=== PATIENT | female | born 1975 | race Two or more races ===

== ENCOUNTER 2020-02-25 14:55 | Outpatient (REF) | payer OTHER, SELFPAY | END 2020-02-25 14:56 | disposition home or self-care (01) | LOC: HO.LAB 14:55 | PROVIDERS: PCP Internal Medicine; Referring Provider Internal Medicine; Visit Provider Obstetrics & Gynecology | DX: Z13.89 Encounter for screening for other disorder (principal) ==

== ENCOUNTER 2020-02-25 16:14 | Outpatient (REF) | payer OTHER, SELFPAY ==
[2020-02-25 18:07] LABS: Eosinophils Absolute Auto 0.1 X10*3/uL (0.0-0.4); Eosinophils Percent Auto 0.9 % (0-4); Hematocrit 28.4 % (37-47); Hemoglobin 8.7 g/dl (12.0-16.0); Mean Corpuscular HGB Conc 30.6 g/dl (31.0-35.0); Red Cell Distribution Width 13.8 % (11.0-16.0); SCAN SMEAR FLAG 1
[2020-02-25 18:09] LABS: Basophils Percent Auto 0.5 % (0-2); Imm Gran Abs Auto 0.01 X10*3/uL (0.00-0.03); Imm Gran Pct Auto 0.2 % (0.0-0.4); Lymphocytes Absolute Auto 1.4 X10*3/uL (1.2-4.9); Lymphocytes Percent Auto 23.9 % (20-40); Monocytes Absolute Auto 0.3 X10*3/uL (0.1-1.2); Monocytes Percent Auto 5.8 % (2-11); Neutrophils Absolute Auto 3.9 X10*3/uL (2.0-8.3); Neutrophils Percent Auto 68.7 % (45-73); Platelet Count 187 X10*3/uL (160-400); Red Blood Count 3.34 X10*6/uL (4.20-5.50); White Blood Count 5.7 X10*3/uL (4.8-10.8)
[2020-02-25 18:16] LABS: MANUAL DIFF FLAG NO; PLT ABN DIST 1
[2020-02-25 18:53] LABS: HCG Quantitative < 2 mIU/mL; Thyroid Stimulating Hormone 0.79 uIU/mL (0.32-4.0)
[2020-02-26 11:01] LABS: BV Int Neg Control Negative (Negative); BV Int Pos Control Positive (Positive)
[2020-02-26 11:02] LABS: CT PCR NOT DETECTED (Not Detect.); NG PCR NOT DETECTED (Not Detect.)
[2020-03-01 17:27] LABS: HPV mRNA E6/E7 rflx Not Detected (Not Detected)
== END 2020-02-25 16:15 | disposition home or self-care (01) ==
LOC: HO.LAB 16:14
PROVIDERS: Visit Provider Obstetrics & Gynecology
DX: Z01.419 Encounter for gynecological examination (general) (routine) without abnormal findings (principal); N92.0 Excessive and frequent menstruation with regular cycle
CPT/HCPCS: 36415; 84443; 84702; 85025; 87480; 87491; 87510; 87591; 87624; 87625; 87660; 88142

== ENCOUNTER → 2020-03-09 11:10 | Outpatient (BNVA) | payer OTHER, SELFPAY | PROVIDERS: PCP Internal Medicine; Visit Provider Obstetrics & Gynecology | DX: N92.0 Excessive and frequent menstruation with regular cycle (principal); N76.0 Acute vaginitis; B96.89 Other specified bacterial agents as the cause of diseases classified elsewhere | CPT/HCPCS: 99212 ==

== ENCOUNTER 2020-03-12 12:25 | Outpatient (REF) | payer OTHER, SELFPAY | END 2020-03-12 12:26 | disposition home or self-care (01) | LOC: HO.LAB 12:25 | PROVIDERS: Visit Provider Internal Medicine | DX: Z20.828 Contact with and (suspected) exposure to other viral communicable diseases (principal) | CPT/HCPCS: C9803; U0003 ==

== ENCOUNTER 2020-03-30 15:24 | Outpatient (REF) | payer OTHER, SELFPAY ==
--- NOTE | 2020-03-30 15:29 | US_ITS ---
EXAMINATION: US PELVIS COMPLETE US TRANSVAGINAL CLINICAL INFORMATION: Excessive and frequent menstruation with irregular cycle. LMP 03/17/2020. COMPARISON: Pelvic ultrasound 06/06/2019 TECHNIQUE: Transabdominal and transvaginal ultrasound of the pelvis was performed. FINDINGS: The uterus is anteverted and anteflexed measuring 10.8 cm in length, 6.5 cm AP, and 8.2 cm in transverse dimension. There are multiple hypoechoic fibroids seen. 1. A 2.7 x 2.7 x 2.4 cm lesion in the submucosal lower uterine segment. Previously, it measured 3.4 x 3.1 x 2.8 cm. 2. Medium-sized lesion in the mid body of the uterus measuring 4.0 x 4.1 x 4.1 cm. Previously, it measured 4.2 x 3.7 x 4.8 cm. 3. Posterior fundal small lesion measuring 3.0 x 2.3 x 2.1 cm. Previously, it measured 1.7 x 1.1 x 2.1 cm. 4. Lesion in the anterior fundus measuring 1.8 x 1.6 x 1.6 cm. Previously, it measured 1.6 x 1.3 x 2.2 cm. 5. New lesion in the posterior body of the uterus measuring 1.3 x 1.2 x 1.4 cm. 6. Lesion in the anterior upper body of the uterus measuring 0.9 x 1.0 x 1.1 cm. There are small nabothian cysts seen in the cervix. The right ovary measures 2.7 x 1.5 x 2.1 cm and volume 4.4 mL. Previously, it measured 2.8 x 2.1 x 2.9 cm. It appears unremarkable. The left ovary measures 2.5 x 1.7 x 2.4 cm and volume 5.4 mL. Previously, it measured 3.0 x 1.5 x 2.8 cm. There is no free fluid in the cul-de-sac. US/US pelvic complete IMPRESSION: Multiple uterine fibroids. There are 2 fibroids new since the previous study. Previously seen right posterior body of uterus fibroid is not seen at this time. Some of the fibroids in the lower body of uterus #1 and #2 lesions on previous exam correspond to #6 and #5 lesions on the present exam.
== END 2020-03-30 15:25 | disposition home or self-care (01) ==
LOC: HO.US 15:24
PROVIDERS: PCP Internal Medicine; Visit Provider Obstetrics & Gynecology
DX: D21.9 Benign neoplasm of connective and other soft tissue, unspecified (principal); N92.0 Excessive and frequent menstruation with regular cycle
CPT/HCPCS: 76830; 76856

== ENCOUNTER → 2020-04-12 14:30 | Outpatient (BNVA) | payer OTHER, SELFPAY | PROVIDERS: PCP Internal Medicine; Visit Provider Obstetrics & Gynecology | DX: Z76.89 Persons encountering health services in other specified circumstances (principal) ==

== ENCOUNTER 2020-04-22 10:11 | Outpatient (REF) | payer OTHER, SELFPAY | END 2020-04-22 10:12 | disposition home or self-care (01) | LOC: HO.LAB 10:11 | PROVIDERS: PCP Internal Medicine; Visit Provider Obstetrics & Gynecology | DX: N92.0 Excessive and frequent menstruation with regular cycle (principal) | CPT/HCPCS: 58100; 88305 ==

== ENCOUNTER → 2020-04-29 16:21 | Outpatient (BNVA) | payer OTHER, SELFPAY | PROVIDERS: PCP Internal Medicine; Visit Provider Obstetrics & Gynecology ==

== ENCOUNTER 2020-06-06 23:13 | Emergency (ER) | payer OTHER, SELFPAY ==
[2020-06-06 23:21] VITALS: BP 154/64; PULSE 79; RESP 16; TEMP 36.1; O2SAT 98; BMI 28.3
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
[2020-06-07] MEDS: Lidocaine 4 % Patch ADH..PATCH 1 PATCH TRANSDERMA (00:14)
[2020-06-07] MEDS: Ibuprofen 800 MG TABLET PO (00:14)
[2020-06-07] MEDS: Acetaminophen 325 MG TABLET 975 MG PO (00:14)
== END 2020-06-07 00:56 | disposition home or self-care (01) ==
PROVIDERS: Emergency Provider Student in an Organized Health Care Education/Training Program; PCP Internal Medicine
DX: S16.1XXA Strain of muscle, fascia and tendon at neck level, initial encounter (principal); S39.012A Strain of muscle, fascia and tendon of lower back, initial encounter; M54.2 Cervicalgia; M62.838 Other muscle spasm; V43.62XA Car passenger injured in collision with other type car in traffic accident, initial encounter; Y93.9 Activity, unspecified; Y92.410 Unspecified street and highway as the place of occurrence of the external cause; Y99.9 Unspecified external cause status; Z79.899 Other long term (current) drug therapy
CPT/HCPCS: 96372; 99284

== ENCOUNTER 2020-06-17 14:06 | Outpatient (REF) | payer OTHER, SELFPAY ==
--- NOTE | ~2020-06-17 | MM_ITS ---
EXAMINATION: MM SCREENING DIGITAL BREAST TOMOSYNTHESIS, BILATERAL CLINICAL INFORMATION: Screening. Asymptomatic. The lifetime risk of breast cancer based on the Tyrer-Cuzick Model is 11.5%. COMPARISON: Mammography: January 03, 2019 and July 06, 2017 TECHNIQUE: Digital breast tomosynthesis is performed in both the craniocaudal and mediolateral oblique views along with computer-aided detection (CAD). Synthesized 2D images are generated from the tomosynthesis. FINDINGS: The breasts are extremely dense, which lowers the sensitivity of mammography (ACR BI-RADS breast composition Category d). There are no significant masses, abnormal calcifications, or other abnormalities. MM/MM tomosynthesis screening BI IMPRESSION: There are no significant changes from prior study. ASSESSMENT: BI-RADS 1: Negative RECOMMENDATION: Routine annual mammography screening. This patient's information was entered into a reminder system with a target due date for their next mammogram.
== END 2020-06-17 14:07 | disposition home or self-care (01) ==
LOC: HO.MAMMO 14:06
PROVIDERS: PCP Internal Medicine; Visit Provider Obstetrics & Gynecology
DX: Z12.31 Encounter for screening mammogram for malignant neoplasm of breast (principal)
CPT/HCPCS: 77063; 77067

== ENCOUNTER 2020-07-04 12:04 | Emergency (ER) | payer OTHER, SELFPAY ==
--- NOTE | ~2020-07-04 | XR_ITS ---
EXAMINATION: XR HAND, RIGHT CLINICAL INFORMATION: Rule out foreign body. COMPARISON: None TECHNIQUE: PA, lateral, and oblique views of the right hand. FINDINGS: The bones and soft tissues are normal. No fracture. Alignment is anatomic. Joint spaces are maintained. No erosions or soft tissue calcifications. XR/XR hand RT 2V IMPRESSION: Normal right hand.
[2020-07-04 12:13] VITALS: BP 153/86; PULSE 84; RESP 20; TEMP 37.2; O2SAT 100; BMI 29.2
[2020-07-04] MEDS: Amoxicillin/Potassium Clav 875 MG TABLET PO (13:21)
[2020-07-04] MEDS: Ibuprofen 600 MG TABLET PO (13:21)
[2020-07-04] MEDS: Diphth,Pertus(ACell),Tet Adult 0.5 ML SYRINGE IM (13:21)
--- NOTE | 2020-07-04 13:50 | PC.NURSE ---
WOUNDS CLEANSED WITH SOAP/WATER AND NS, BLEEDING CONTROLLED
--- NOTE | 2020-07-04 13:58 | PC.NURSE ---
MULTIPLE DOG BITE AREAS CLEANSED WITH SOAP/WATER/NS, AWAITING XRAY RESULTS
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
== END 2020-07-04 15:01 | disposition home or self-care (01) ==
PROVIDERS: Emergency Provider Emergency Medicine; PCP Internal Medicine
DX: S50.872A Other superficial bite of left forearm, initial encounter (principal); S50.871A Other superficial bite of right forearm, initial encounter; M79.632 Pain in left forearm; M79.631 Pain in right forearm; W54.0XXA Bitten by dog, initial encounter; Y93.9 Activity, unspecified; Y92.9 Unspecified place or not applicable; Y99.9 Unspecified external cause status; Z79.899 Other long term (current) drug therapy
CPT/HCPCS: 73120; 90471; 90715; 99283; 99284

== ENCOUNTER 2020-08-05 15:16 | Emergency (ER) | payer OTHER, SELFPAY ==
[2020-08-05 15:58] VITALS: BP 165/81; PULSE 68; RESP 18; TEMP 37.1; O2SAT 100; BMI 29.2
[2020-08-05] MEDS: Ibuprofen 600 MG TABLET PO (18:28)
[2020-08-05] MEDS: Lidocaine HCl 2 % MPF 5 ML VIAL INFILTRATI (18:28)
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
--- NOTE | 2020-08-05 19:15 | PC.NURSE ---
PT BITE 1 SUTURE APPLIED BY EDWIN FELTON ALL BITES FLUSHED WITH NS 0.9% ANTIBACTERIAL APPLIED WITH DSD,
== END 2020-08-05 19:16 | disposition home or self-care (01) ==
PROVIDERS: Emergency Provider Internal Medicine
DX: S51.811A Laceration without foreign body of right forearm, initial encounter (principal); S50.871A Other superficial bite of right forearm, initial encounter; M79.631 Pain in right forearm; W54.0XXA Bitten by dog, initial encounter; Y93.9 Activity, unspecified; Y92.9 Unspecified place or not applicable; Y99.9 Unspecified external cause status; Z79.899 Other long term (current) drug therapy
CPT/HCPCS: 12001; 99284

== ENCOUNTER 2020-08-16 09:37 | Emergency (ER) | payer OTHER, SELFPAY ==
[2020-08-16 09:45] VITALS: BP 141/70; PULSE 76; RESP 18; TEMP 36.4; O2SAT 100; BMI 29.2
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
== END 2020-08-16 10:10 | disposition home or self-care (01) ==
PROVIDERS: Emergency Provider Emergency Medicine
DX: Z48.02 Encounter for removal of sutures (principal); S51.811D Laceration without foreign body of right forearm, subsequent encounter; W54.0XXD Bitten by dog, subsequent encounter
CPT/HCPCS: 99283

== ENCOUNTER 2020-08-20 23:53 | Emergency (ER) | payer OTHER, SELFPAY ==
--- NOTE | ~2020-08-20 | US_ITS ---
EXAMINATION: ULTRASOUND PELVIS AND TRANSVAGINAL CLINICAL INFORMATION: Heavy vaginal bleeding COMPARISON: 03/30/2020 TECHNIQUE: Sonographic evaluation of the pelvis was performed transabdominally and transvaginally. FINDINGS: The uterus measures 15.6 cm in length and 9.3 x 8.6 cm in AP and transverse dimensions. Endometrial stripe measures approximately 0.9 cm in thickness, though this is difficult to clearly visualize due to multiple fibroids. Nabothian cysts are noted in the cervix. Multiple fibroids are identified and attempted to be compared with 03/30/2020. Largest fibroid in the lower uterus measures 5.9 x 3.2 x 3.6 cm, previously 2.7 x 2.7 x 2.4 cm. A fibroid in the mid to distal uterus measures 5.2 x 4.2 x 4.4 cm, previously 4.0 x 4.1 x 4.1 cm. A fibroid at the uterine fundus measures 4.1 x 2.7 x 4.0 cm, previously 1.8 x 1.6 x 1.6 cm. A few additional fibroids are noted measuring up to 2.2 cm (previously up to 1.4 cm) and up to 2.0 cm (previously up to 3.0 cm). There is also a 1.5 x 0.7 x 1.3 cm fibroid in the mid uterus which was not identified previously. The ovaries are only visible on transabdominal imaging. The right ovary measures 5.8 x 3.6 x 4.7 cm and contains a 4.3 x 3.0 x 3.9 cm simple cyst. The left ovary measures 3.6 x 1.9 x 2.1 cm and appears unremarkable. Small amount of pelvic free fluid is noted. US/US pelvic and transvaginal IMPRESSION: 1. Redemonstration of multiple fibroids as listed above. 2. Simple right ovarian cyst measuring up to 4.3 cm. Sonographic follow-up may be performed to assess for resolution. 3. Small amount of nonspecific pelvic free fluid.
[2020-08-21] VITALS (14 sets, daily range): BP systolic 72–139; BP diastolic 30–73; PULSE 61–85; RESP 16–20; TEMP 35.9–36.3; O2SAT 97–100; BMI 24.3
[2020-08-21 00:25] LABS: MANUAL DIFF FLAG NO
[2020-08-21 00:26] LABS: Basophils Absolute Auto 0.1 X10*3/uL (0.0-0.2); Basophils Percent Auto 0.6 % (0-2); Eosinophils Absolute Auto 0.2 X10*3/uL (0.0-0.4); Eosinophils Percent Auto 2.6 % (0-4); Hematocrit 30.7 % (37-47); Hemoglobin 9.7 g/dl (12.0-16.0); Imm Gran Abs Auto 0.03 X10*3/uL (0.00-0.03); Imm Gran Pct Auto 0.4 % (0.0-0.4); Lymphocytes Percent Auto 34.9 % (20-40); Mean Corpuscular HGB Conc 31.6 g/dl (31.0-35.0); Mean Corpuscular Hemoglobin 27.1 pg (27.0-33.0); Mean Corpuscular Volume 85.8 fL (80-98); Monocytes Absolute Auto 0.5 X10*3/uL (0.1-1.2); Monocytes Percent Auto 5.9 % (2-11); Neutrophils Absolute Auto 4.7 X10*3/uL (2.0-8.3); Neutrophils Percent Auto 55.6 % (45-73); Platelet Count 194 X10*3/uL (160-400); Red Blood Count 3.58 X10*6/uL (4.20-5.50); Red Cell Distribution Width 13.5 % (11.0-16.0); White Blood Count 8.5 X10*3/uL (4.8-10.8)
[2020-08-21] MEDS: 0.9 % Sodium Chloride 1,000 ML 999 ML IVCONT ×2 (00:30)
[2020-08-21 00:53] LABS: Alanine Aminotransferase 16 U/L (0-31); Albumin Level 3.7 g/dL (3.5-5.0); Alkaline Phosphatase 62 U/L (39-117); Anion Gap 12 (12-20); Aspartate Amino Transferase 16 U/L (5-31); Bilirubin Total 0.4 mg/dL (0.0-1.0); Blood Urea Nitrogen 16 mg/dL (9-16); Calcium 8.4 mg/dL (8.4-10.2); Carbon Dioxide 23 mmol/L (22-29); Chloride 107 mmol/L (96-108); Creatinine Clr Calc Pharmacy 72.4; Estimated Glomerular Filt Rate 56; Glucose Random 114 mg/dL (60-115); Potassium 3.6 mmol/L (3.3-5.1); Sodium 138 mmol/L (135-145); Total Protein 6.2 g/dL (6.5-8.0)
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
[2020-08-21 01:01] LABS: HCG Quantitative < 2 mIU/mL
--- NOTE | 2020-08-21 01:03 | PC.NURSE ---
Upon arrival to ED, while patient was being triaged, (per Marina Licea,RN), patient began to feel like I was gonna pass out . This RN and applications support specialist to triage with stretcher for assistance to transfer into stretcher. Pt diaphoretic, hypotensive 62/39, alert/oriented/answering questions appropriately, but tired. Pt reports hx of uterine fibroids and takes TXA with each menstrual period. Pt self reports I've bled through 10 maxi pads in the last 2 or 3 hours . Pelvic exam performed by at bedside, this RN assisting, moderate clots removed, with no additional signs of active bleeding noted. Lower abdominal/pelvic pain noted with palpation. 20g IV access in right AC, 18g IV access in left AC with 2L Normal saline infusing as ordered. Labs drawn and sent for analysis, including Type & Screen. Pt's vital signs have improved, pt reports feeling better since I got here . Pt no longer diaphoretic or hypotensive. Will continue to monitor.
[2020-08-21 01:48] LABS: Glucose Urine UA NEG (NEG); Leukocyte Esterase Urine NEG (NEG); Nitrite Urine NEG (NEG); Specific Gravity - Urine 1.025 (1.005-1.025); Urine Blood 3+ (NEG); Urine Ketones NEG (NEG); Urine Protein NEG (NEG-TRACE)
[2020-08-21 01:50] LABS: Appearance Urine CLOUDY; Color Urine PINK
[2020-08-21 01:55] LABS: Bacteria Urine TRACE /LPF; Mucus Urine TRACE /LPF; Squamous Epithelial Cell Urine 1+ /LPF; WBC Urine 0-2 /HPF (0-4)
== END 2020-08-21 05:23 | disposition home or self-care (01) ==
PROVIDERS: Emergency Provider Emergency Medicine; PCP Hospitalist
DX: N92.0 Excessive and frequent menstruation with regular cycle (principal); N83.291 Other ovarian cyst, right side; D25.9 Leiomyoma of uterus, unspecified; N88.8 Other specified noninflammatory disorders of cervix uteri
CPT/HCPCS: 36415; 76830; 76856; 80053; 80076; 81001; 84702; 85025; 86850; 86900; 86901; 96360; 99284

== ENCOUNTER 2020-09-15 10:23 | Outpatient (REF) | payer OTHER, SELFPAY ==
[2020-09-15 13:45] LABS: Basophils Percent Auto 0.4 % (0-2); Eosinophils Percent Auto 0.6 % (0-4); Imm Gran Abs Auto 0.01 X10*3/uL (0.00-0.03); Imm Gran Pct Auto 0.2 % (0.0-0.4); MANUAL DIFF FLAG SCAN; Red Cell Distribution Width 14.6 % (11.0-16.0)
[2020-09-15 13:46] LABS: Hematocrit 36.6 % (37-47); Hemoglobin 11.6 g/dl (12.0-16.0); Lymphocytes Absolute Auto 1.1 X10*3/uL (1.2-4.9); Lymphocytes Percent Auto 21.8 % (20-40); Mean Corpuscular HGB Conc 31.7 g/dl (31.0-35.0); Mean Corpuscular Hemoglobin 28.2 pg (27.0-33.0); Mean Corpuscular Volume 89.1 fL (80-98); Monocytes Absolute Auto 0.3 X10*3/uL (0.1-1.2); Monocytes Percent Auto 6.7 % (2-11); Neutrophils Absolute Auto 3.5 X10*3/uL (2.0-8.3); Neutrophils Percent Auto 70.3 % (45-73); Platelet Count 135 X10*3/uL (160-400); Red Blood Count 4.11 X10*6/uL (4.20-5.50)
[2020-09-15 13:48] LABS: PLT ABN DIST 1
[2020-09-15 14:05] LABS: Appearance Urine TURBID; Color Urine YELLOW; Glucose Urine UA NEG (NEG); Leukocyte Esterase Urine NEG (NEG); Nitrite Urine NEG (NEG); Specific Gravity - Urine >= 1.030 (1.005-1.025); Urine Blood TRACE (NEG); Urine Ketones NEG (NEG); Urine Protein NEG (NEG-TRACE)
[2020-09-15 14:14] LABS: RBC Urine 0-2 /HPF (0); WBC Urine 0-2 /HPF (0-4)
[2020-09-15 14:15] LABS: Amorphous Sediment Urine 4+ /LPF; Bacteria Urine TRACE /LPF; Squamous Epithelial Cell Urine TRACE /LPF
[2020-09-15 16:34] LABS: TSH reflex Free T4 0.85 uIU/mL (0.32-4.0)
[2020-09-15 16:41] LABS: Alanine Aminotransferase 20 U/L (0-31); Albumin Level 4.1 g/dL (3.5-5.0); Alkaline Phosphatase 59 U/L (39-117); Anion Gap 12 (12-20); Aspartate Amino Transferase 19 U/L (5-31); Bilirubin Total 0.7 mg/dL (0.0-1.0); Blood Urea Nitrogen 14 mg/dL (9-16); Calcium 9.4 mg/dL (8.4-10.2); Carbon Dioxide 24 mmol/L (22-29); Chloride 108 mmol/L (96-108); Cholesterol 163 mg/dL; Estimated Glomerular Filt Rate 53; Glucose Fasting 74 mg/dL (60-99); HDL Cholesterol 61 mg/dL; LDL Cholesterol Calculated 88 mg/dl; Potassium 4.3 mmol/L (3.3-5.1); Sodium 140 mmol/L (135-145); Total Protein 7.1 g/dL (6.5-8.0); Triglycerides 70 mg/dL
== END 2020-09-15 10:24 | disposition home or self-care (01) ==
LOC: HO.WFDLDS 10:23
PROVIDERS: Visit Provider Family Medicine
DX: Z00.00 Encounter for general adult medical examination without abnormal findings (principal)
CPT/HCPCS: 36415; 80053; 80061; 81001; 81003; 84443; 85025

== ENCOUNTER 2020-12-10 21:21 | Emergency (ER) | payer OTHER, SELFPAY ==
[2020-12-10 22:08] VITALS: BP 153/101; PULSE 84; RESP 16; TEMP 36.9; O2SAT 99; BMI 24.5
[2020-12-10 22:13] LABS: Red Cell Distribution Width 13.2 % (11.0-16.0)
[2020-12-10 22:15] LABS: Glucose Urine UA 100 MG/DL (NEG); Leukocyte Esterase Urine 2+ (NEG); Nitrite Urine POS (NEG); UACC Culture Trigger YES; Urine Blood 3+ (NEG); Urine Ketones 15 MG/DL (NEG); Urine Protein 3+ MG/DL (NEG-TRACE)
[2020-12-10 22:15] LABS: Hematocrit 33.1 % (37-47); Hemoglobin 10.9 g/dl (12.0-16.0); Mean Corpuscular HGB Conc 32.9 g/dl (31.0-35.0); Mean Corpuscular Hemoglobin 27.2 pg (27.0-33.0); Mean Corpuscular Volume 82.5 fL (80-98); Mean Platelet Volume 12.5 fL (9.4-12.3); Red Blood Count 4.01 X10*6/uL (4.20-5.50)
[2020-12-10 22:16] LABS: PLT ABN DIST 1; WBC ABN SCTR FOR CBC 1
[2020-12-10 22:19] LABS: Appearance Urine CLOUDY; Color Urine RED
[2020-12-10 22:25] LABS: UPreg QC Valid YES; Urine Pregnancy NEGATIVE (NEGATIVE)
[2020-12-10 22:29] LABS: Alanine Aminotransferase 15 U/L (0-31); Albumin Level 3.7 g/dL (3.5-5.0); Alkaline Phosphatase 68 U/L (39-117); Anion Gap 11 (12-20); Aspartate Amino Transferase 14 U/L (5-31); Bilirubin Total 0.4 mg/dL (0.0-1.0); Blood Urea Nitrogen 9 mg/dL (9-16); Calcium 9.3 mg/dL (8.4-10.2); Carbon Dioxide 23 mmol/L (22-29); Chloride 107 mmol/L (96-108); Creatinine Clr Calc Pharmacy 79.1; Estimated Glomerular Filt Rate > 60; Glucose Random 138 mg/dL (60-115); Potassium 3.4 mmol/L (3.3-5.1); Sodium 138 mmol/L (135-145); Total Protein 6.8 g/dL (6.5-8.0)
[2020-12-10 22:30] LABS: RBC Urine TNTC /HPF (0); WBC Urine 0 /HPF (0-4)
[2020-12-10 22:31] LABS: Bacteria Urine TRACE /LPF; Squamous Epithelial Cell Urine TRACE /LPF
[2020-12-10 22:43] LABS: Platelet Count 142 X10*3/uL (160-400); White Blood Count 5.5 X10*3/uL (4.8-10.8)
[2020-12-10 22:44] LABS: Eosinophils Absolute Manual 0.2 X10*3/UL (0.0-0.8); Eosinophils Percent Manual 3 % (0-4); Large Platelet PRESENT; Lymphocytes Absolute Manual 1.1 X10*3/uL (0.6-4.8); Lymphocytes Percent Manual 20 % (20-40); Monocytes Absolute Manual 0.1 X10*3/uL (0.0-1.2); Monocytes Percent Manual 1 % (2-11); Neutrophils Percent Manual 76 % (45-73); Platelet Estimate DECREASED (NORMAL); Platelet Morphology Comment NOTED; RBC Morphology NORMAL
[2020-12-10 22:45] LABS: Neutrophils Absolute Manual 4.2 X10*3/uL (2.2-7.9)
[2020-12-11 01:55] VITALS: BP 168/92; PULSE 69; RESP 16; TEMP 36.8; O2SAT 100
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
[2020-12-11 02:19] VITALS: BP 164/86; PULSE 62
[2020-12-11 02:20] VITALS: BP 155/80; PULSE 72
[2020-12-11 02:21] VITALS: BP 145/103; PULSE 78
== END 2020-12-11 02:37 | disposition home or self-care (01) ==
PROVIDERS: Emergency Provider Emergency Medicine; PCP Family Medicine
DX: N92.0 Excessive and frequent menstruation with regular cycle (principal); R42 Dizziness and giddiness; D64.9 Anemia, unspecified; D21.9 Benign neoplasm of connective and other soft tissue, unspecified
CPT/HCPCS: 36415; 80053; 81001; 81025; 85007; 85027; 87086; 99284

== ENCOUNTER 2020-12-13 12:05 | Emergency (ER) | payer OTHER, SELFPAY ==
[2020-12-13 12:45] VITALS: BP 139/70; PULSE 95; RESP 16; TEMP 36.3; O2SAT 100; BMI 28.3
== END 2020-12-13 15:00 | disposition left against medical advice (07) ==
PROVIDERS: Emergency Provider Emergency Medicine; PCP Family Medicine
DX: R42 Dizziness and giddiness (principal); R53.1 Weakness
CPT/HCPCS: 99281; 99282

== ENCOUNTER 2021-02-22 16:09 | Outpatient (REF) | payer OTHER, SELFPAY ==
[2021-02-22 16:33] LABS: MANUAL DIFF FLAG NO
[2021-02-22 16:48] LABS: Basophils Percent Auto 0.7 % (0-2); Eosinophils Absolute Auto 0.1 X10*3/uL (0.0-0.4); Eosinophils Percent Auto 0.9 % (0-4); Hematocrit 43.2 % (37.0-47.0); Imm Gran Abs Auto 0.01 X10*3/uL (0.00-0.03); Imm Gran Pct Auto 0.2 % (0.0-0.4); Lymphocytes Absolute Auto 1.5 X10*3/uL (1.2-4.9); Lymphocytes Percent Auto 27.5 % (20-40); Mean Corpuscular HGB Conc 32.4 g/dl (31.0-35.0); Mean Corpuscular Hemoglobin 27.2 pg (27.0-33.0); Monocytes Absolute Auto 0.4 X10*3/uL (0.1-1.2); Monocytes Percent Auto 7.1 % (2-11); Neutrophils Absolute Auto 3.4 x10*3/uL (2.0-8.3); Neutrophils Percent Auto 63.6 % (45-73); Platelet Count 202 X10*3/uL (160-400); Red Blood Count 5.14 X10*6/uL (4.20-5.50); Red Cell Distribution Width 12.3 % (11.0-16.0); White Blood Count 5.4 X10*3/uL (4.8-10.8)
[2021-02-22 19:01] LABS: Appearance Urine CLEAR; Color Urine YELLOW; Glucose Urine UA NEG (NEG); Leukocyte Esterase Urine NEG (NEG); Nitrite Urine NEG (NEG); Specific Gravity - Urine 1.015 (1.005-1.025); Urine Blood 3+ (NEG); Urine Ketones NEG (NEG); Urine Protein NEG (NEG-TRACE)
[2021-02-22 19:15] LABS: Squamous Epithelial Cell Urine TRACE /LPF; WBC Urine 0-2 /HPF (0-4)
== END 2021-02-22 16:10 | disposition home or self-care (01) ==
LOC: HO.LAB 16:09
PROVIDERS: PCP Family Medicine; Visit Provider Family Medicine
DX: Z00.00 Encounter for general adult medical examination without abnormal findings (principal); D64.9 Anemia, unspecified
CPT/HCPCS: 36415; 81001; 81003; 85025

== ENCOUNTER 2021-02-25 14:52 | Outpatient (REF) | payer OTHER, SELFPAY ==
--- NOTE | ~2021-02-25 | XR_ITS ---
EXAMINATION: XR HIP, LEFT CLINICAL INFORMATION: Left hip pain. COMPARISON: None TECHNIQUE: Two views of the left hip. FINDINGS: Bones and soft tissues are normal. No fracture. Alignment is anatomic. Hip joint space is maintained. XR/XR hip LT min 2V IMPRESSION: Normal left hip.
== END 2021-02-25 14:53 | disposition home or self-care (01) ==
LOC: HO.HMGCX 14:52
PROVIDERS: Visit Provider Family Medicine
DX: M25.552 Pain in left hip (principal)
CPT/HCPCS: 73502

== ENCOUNTER 2021-04-22 08:52 | Outpatient (REF) | payer OTHER, SELFPAY ==
[2021-04-22 11:36] LABS: MANUAL DIFF FLAG NO
[2021-04-22 11:37] LABS: Appearance Urine CLEAR; Color Urine YELLOW; Glucose Urine UA NEG (NEG); Leukocyte Esterase Urine NEG (NEG); Nitrite Urine NEG (NEG); PH 5.5 (5.0-8.0); Specific Gravity - Urine >= 1.030 (1.005-1.025); Urine Blood 1+ (NEG); Urine Ketones NEG (NEG); Urine Protein TRACE MG/DL (NEG-TRACE)
[2021-04-22 11:55] LABS: Basophils Percent Auto 0.4 % (0-2); Eosinophils Percent Auto 0.8 % (0-4); Hemoglobin 14.1 g/dl (12.0-16.0); Imm Gran Abs Auto 0.01 X10*3/uL (0.00-0.03); Imm Gran Pct Auto 0.2 % (0.0-0.4); Lymphocytes Absolute Auto 1.5 X10*3/uL (1.2-4.9); Mean Corpuscular HGB Conc 32.8 g/dl (31.0-35.0); Mean Corpuscular Hemoglobin 27.2 pg (27.0-33.0); Mean Corpuscular Volume 82.9 fL (80.0-98.0); Mean Platelet Volume 13.1 fL (9.4-12.3); Monocytes Absolute Auto 0.3 X10*3/uL (0.1-1.2); Monocytes Percent Auto 6.4 % (2-11); Neutrophils Absolute Auto 3.4 x10*3/uL (2.0-8.3); Neutrophils Percent Auto 64.2 % (45-73); Platelet Count 165 X10*3/uL (160-400); Red Blood Count 5.19 X10*6/uL (4.20-5.50); Red Cell Distribution Width 14.3 % (11.0-16.0); White Blood Count 5.3 X10*3/uL (4.8-10.8)
[2021-04-22 11:59] LABS: Mucus Urine 2+ /LPF; WBC Urine 0-2 /HPF (0-4)
[2021-04-22 12:00] LABS: Squamous Epithelial Cell Urine 2+ /LPF
[2021-04-22 12:11] LABS: Troponin-I High Sensitivity 4.1 ng/L (<3.5-17.0)
[2021-04-22 12:12] LABS: Alanine Aminotransferase 24 U/L (0-31); Albumin Level 4.1 g/dL (3.5-5.0); Alkaline Phosphatase 82 U/L (39-117); Anion Gap 13 (12-20); Aspartate Amino Transferase 19 U/L (5-31); Bilirubin Total 0.8 mg/dL (0.0-1.0); Blood Urea Nitrogen 10 mg/dL (9-16); Calcium 9.4 mg/dL (8.4-10.2); Carbon Dioxide 22 mmol/L (22-29); Chloride 107 mmol/L (96-108); Estimated Glomerular Filt Rate 51; Glucose Fasting 76 mg/dL (60-99); Potassium 4.4 mmol/L (3.3-5.1); Sodium 138 mmol/L (135-145); Total Protein 7.5 g/dL (6.5-8.0)
[2021-04-22 12:21] LABS: Creatinine Urine 368.06 mg/dL; Microalbum/Creatinine Ratio Ur 28.2 ug/mg cr
[2021-04-22 12:35] LABS: TSH reflex Free T4 1.64 uIU/mL (0.32-4.0)
== END 2021-04-22 08:53 | disposition home or self-care (01) ==
LOC: HO.HMGCLDS 08:52
PROVIDERS: PCP Family Medicine; Visit Provider Family Medicine
DX: Z00.00 Encounter for general adult medical examination without abnormal findings (principal); I10 Essential (primary) hypertension; D64.9 Anemia, unspecified
CPT/HCPCS: 36415; 80053; 81001; 82043; 84443; 84484; 85025

== ENCOUNTER 2021-07-28 12:02 | Outpatient (REF) | payer OTHER, SELFPAY ==
[2021-07-28 13:52] LABS: Basophils Percent Auto 0.6 % (0-2); Red Cell Distribution Width 13.4 % (11.0-16.0); SCAN SMEAR FLAG 1
[2021-07-28 13:54] LABS: Eosinophils Absolute Auto 0.1 X10*3/uL (0.0-0.4); Eosinophils Percent Auto 1.5 % (0-4); Hemoglobin 12.6 g/dl (12.0-16.0); Imm Gran Abs Auto 0.02 X10*3/uL (0.00-0.03); Imm Gran Pct Auto 0.4 % (0.0-0.4); Lymphocytes Absolute Auto 1.1 X10*3/uL (1.2-4.9); Lymphocytes Percent Auto 20.9 % (20-40); Mean Corpuscular HGB Conc 32.3 g/dl (31.0-35.0); Mean Corpuscular Hemoglobin 26.6 pg (27.0-33.0); Mean Corpuscular Volume 82.5 fL (80.0-98.0); Monocytes Absolute Auto 0.3 X10*3/uL (0.1-1.2); Monocytes Percent Auto 5.4 % (2-11); Neutrophils Absolute Auto 3.8 x10*3/uL (2.0-8.3); Neutrophils Percent Auto 71.2 % (45-73); Platelet Count 181 X10*3/uL (160-400); Red Blood Count 4.73 X10*6/uL (4.20-5.50); White Blood Count 5.4 X10*3/uL (4.8-10.8)
[2021-07-28 14:21] LABS: Alanine Aminotransferase 19 U/L (0-31); Albumin Level 4.2 g/dL (3.5-5.0); Alkaline Phosphatase 96 U/L (39-117); Anion Gap 12 (12-20); Aspartate Amino Transferase 19 U/L (5-31); Bilirubin Total 0.7 mg/dL (0.0-1.0); Blood Urea Nitrogen 13 mg/dL (9-16); Calcium 10.1 mg/dL (8.4-10.2); Carbon Dioxide 28 mmol/L (22-29); Chloride 104 mmol/L (96-108); Estimated Glomerular Filt Rate 52; Glucose Random 82 mg/dL (60-115); Iron 59 mcg/dL (30-160); Percent Iron Saturation 15 % (15-50); Potassium 4.2 mmol/L (3.3-5.1); Sodium 140 mmol/L (135-145); Total Iron Binding Capacity 397 mcg/dL (228-428); Total Protein 7.5 g/dL (6.5-8.0); Unsaturated Iron Binding 338 ug/dL
[2021-07-28 14:23] LABS: PLT ABN DIST 1
[2021-07-28 14:42] LABS: Ferritin 18 ng/mL (10-250)
== END 2021-07-28 12:03 | disposition home or self-care (01) ==
LOC: HO.HMGCLDS 12:02
PROVIDERS: PCP Family Medicine; Visit Provider Family Medicine
DX: Z00.00 Encounter for general adult medical examination without abnormal findings (principal); R25.3 Fasciculation
CPT/HCPCS: 36415; 80053; 82728; 83540; 85025

== ENCOUNTER 2021-08-10 14:00 | Outpatient (RCR) | payer OTHER, SELFPAY ==
--- NOTE | 2021-03-31 07:17 | MHC.PT.EP ---
[facility] [place] Office [place] Office [place] Office [address] Randi [place] [address] [phone] F: [phone] F: [phone] F: [phone] F: [phone] Physical Therapy Plan of Care Date of Evaluation: Date of Surgery: Diagnosis: R hip pain Assessment: Patient is a 46 year old R handed female who presents with s/s consistent with L hip pain. She works with daily job demands including mostly sitting/working from home. Patient past medical history is fairly unremarkable. Current impairments include pain, posture, flexibility, ROM, strength, activity tolerance and functional mobility. Functional limitations include decreased ability to walk, hike, sit, transfer, and be on feet for longer periods of time. Patient is motivated with good rehab potential. Skilled PT will address impairments and functional limitations in order to achieve goals. Frequency and Duration: The patient will be seen 2x/week for 5 weeks Short Term Goals: I with HEP - 2 weeks normal hip flex flexibility, HS flexibility - 3 weeks Longterm Goals: hip abd strength 4+/5 - 5 weeks LEFS 74/80 - 5 weeks Able to walk/hike 45 minutes without increased pain - 5 weeks Treatment Plan: Modalities to reduce pain, spasms and effusion. Manual therapy to restore motion and function. Therapeutic exercise to improve strength and flexibility. Neuromuscular re-education for posture and balance. Therapeutic activities to return to functional activities of daily living. Electronically signed by: Hussain Hanna PT Please sign and return to therapist. Thank you for your referral.
--- NOTE | 2021-08-02 15:11 | MHC.PT.OD ---
[facility] [place] Office [place] Office [place] Office [address] Alli Busch [address] [phone] F: [phone] F: [phone] F: [phone] F: [phone] Physical Therapy Daily Note Diagnosis: B hip pain Date of Surgery: Date of Evaluation: 03/30/21 Date of Treatment: 08/02/21 Treatments to Date: 19 Cancellations to Date: 0 No Shows to Date: Authorized Visits: Insurance End Date: Precautions/ Contraindications:none Subjective: Pt entered and stated she is painfree today, but had L groin pain yesterday. Pain Score and Location: 2 L hip Objective Flowsheet: Tests & Measures L.E equal Significant L trendelenberg present with TM walking Exercises TM walking and gait assessment, edu - 10 min, 10 min hip abd and add with bridging 15x each supine SNG 3x30 secodns Walk outs 20 lb x 10 reps B Bosu squats x 10 reps Lunges x 10 reps 1 ln sh flex hip abd lat walk x 2 mins ylw Foam FT EO, EC, Tandem EO, EC, SLS MET shotgun MH x 10 min Modalities Prone L L/S, 4 channel int 9 ma's with CP Assessment: I discussed the plan with this patient at length. She had attended 19 PT appts with a 4 week disruption due to surgical procedure. She has been improving since the procedure related to her strength and activity tolerance. However, she was much weaker as a result of her surgery. She has been having a difficult time progressing and managing pain due to popping/clicking and pain related to squatting, biking, bending and lifting. There is a predictable pattern to her pain presentation that she can relieve with cracking her hip. Due to the recurrence of this pain and the difficulty promoting symmetry during daily life activities because of the pain, I am going to recommend further imaging to her referring MD, Dr. Monahan, at this time. PT Plan: hip flexibility and strength, gait mechanics, hip/core symmetry Short Term Goals: I with HEP - 2 weeks normal hip flex flexibility, HS flexibility - 3 weeks Group Home Goals: hip abd strength 4+/5 - 5 weeks LEFS 74/80 - 5 weeks Able to walk/hike 45 minutes without increased pain - 5 weeks Electronically signed by: Hussain Hanna PT
--- NOTE | 2021-11-24 09:45 | MHC.PT.DC ---
[facility] [place] Office [place] Office [place] Office [address] Alli Busch [address] [phone] F: [phone] F: [phone] F: [phone] F: [phone] Physical Therapy Discharge Report Diagnosis: B hip pain Date of Surgery: Date of Evaluation: 03/30/21 Date of Discharge: 09/16/21 Treatments to Date: Cancellations to Date: 0 No Shows to Date: Discharge Status: Improved Function Independent with HEP Discharge Summary: 08/10; Pt I with HEP. No c/o pain with exs today. Pt working out at gym 28/06 x week. Pt F/U with MD regarding MRI. Pt will contact us if further PT is needed. Pt DC today Electronically signed by: Hussain Hanna, PT Please sign and return to therapist. Thank you for your referral.
== END 2021-11-24 09:46 | disposition home or self-care (01) ==
LOC: HO.PTCHIC 14:00
PROVIDERS: PCP Family Medicine; Visit Provider Family Medicine
DX: M25.551 Pain in right hip (principal); M25.552 Pain in left hip
CPT/HCPCS: 97110; 97140; 97161; 97530

== ENCOUNTER → 2021-09-06 07:51 | Outpatient (REF) | payer OTHER, SELFPAY ==
--- NOTE | 2021-09-06 07:56 | CA_ITS ---
Transthoracic Echocardiogram Patient (Last, First, Middle): Madalyn Edgar, Gender: Female Date of : 1975 Age: 46 Procedure Date: 09/06/2021 Procedure Type: Transthoracic Echocardiogram Location: OP Height: 160.02 cm Weight: 74.84 kg BSA: 1.78 m2 Heart Rate: bpm BP: 128 / 68 mmHg Sales Account Coordinator: Referring MD: Porfirio Monahan MD Street Supervisor: Guy Madison MD Symptoms: R01.1 - Cardiac murmur, unspecified Study Quality: Good ECG Rhythm: Sinus Conclusions: - Essentially normal study Findings Left Ventricle Normal left ventricular size, thickness, and systolic function. The visually estimated ejection fraction is between 55-60%. Spectral Doppler is indicative of a normal filling pattern. Right Ventricle Normal right ventricular cavity size and systolic function. Atria The left atrium is likely dilated. Interatrial shunt cannot be excluded. The right atrium is normal in size. Aortic Valve Normal aortic valve structure and function. There is no aortic valve stenosis. There is no aortic valve regurgitation. Mitral Valve Normal mitral valve structure and function. There is trace mitral valve regurgitation. There is no mitral valve stenosis. Pulmonic Valve The pulmonic valve is likely normal. There is trace pulmonic valve regurgitation. Tricuspid Valve Normal tricuspid valve structure. There is trace tricuspid valve regurgitation. The right ventricular systolic pressure is normal. The right ventricular systolic pressure is 25 mmHg. Normal right atrial pressure. There is no evidence of pulmonary hypertension. Great Vessels All visible segments of the aorta are normal in size. The pulmonary artery was not well visualized. Venous The inferior vena cava is normal in size and collapses greater than 50% with inspiration. Pericardium/Pleural There is no evidence of pericardial effusion. Prior Study Comparison No prior study available for comparison. Measurements 2D Linear Measurements IVSd: 1.09 0.6-0.9/0.6-1.0 cm LVIDd: 4.69 3.9-5.3/4.2-5.9 cm LVIDd Index: 2.63 2.4-3.2/2.2-3.1 cm/m2 LVIDs: 2.71 2.0-3.6 cm LVPWd: 1.06 0.7-1.1 cm Ao Root: 2.60 2.1-3.5 cm LA Diam: 3.60 2.7-3.8/3.0-4.0 cm LAIDs Index: 2.02 1.5-2.3 cm/m2 LV Mass: 225.53 67-162/88-224 g LV Mass Index: 126.70 43-95/49-115 g/m2 LVOT Diam: 2.00 3.0+(-)1.3 cm Mitral Valve MV Pk E: 1.22 MV PK A: 0.53 MV Decel Time: 187.00 E/A: 2.30 E'Lateral: 8.92 E'Medial: 7.83 E/E' Med: 15.60 E/E' Lat: 13.70 PHT: 55.00 MVA PHT: 4.00 Decel Nash: 6.54 Aortic Valve AoV Pk Jonathan: 1.88 AoV Mn Jonathan: 1.32 AoV VTI: 0.48 AoV Pk Grad: 14.00 Aov Mn Grad: 8.00 FLACA Cont.VTI: 1.75 LVOT LVOT Pk Jonathan: 1.26 LVOT Mn Jonathan: 0.76 LVOT VTI: 0.27 LVOT Pk Grad: 6.00 LVOT Mn Grad: 3.00 LVOT Diam: 2.00 LVOT Area: 3.14 Diastolic Function MV Pk E: 1.22 MV Pk A: 0.53 E/A: 2.30 E'Medial: 7.83 E/E' Med: 15.60 E' Laterial: 8.92 E/E' Lat: 13.70 Right Ventricle TAPSE (mm): 22.00 TVS' Jonathan: 10.00 Tricuspid Valve TR Pk Jonathan: 2.37 TR Pk Grad: 22.00 RA Press: 3.00 RVSP: 25.00 Great Vessels Aorta Ao Root-2D: 2.60 2.0-3.7 cm Ao Asc: 2.60 2.1-3.4 cm Pulmonary Valve PV Pk Jonathan: 0.87 Peak PV Grad: 3.00 Updated in Other Vendor System with Status of Final Guy Madison MD electronically signed on 09/07/2021 12:56:03 PM with status of Final
== END ==
LOC: HO.CARD 07:51
PROVIDERS: PCP Family Medicine; Visit Provider Family Medicine
DX: R01.1 Cardiac murmur, unspecified (principal)
CPT/HCPCS: 93306

== ENCOUNTER 2022-01-26 10:35 | Outpatient (REF) | payer OTHER, SELFPAY ==
--- NOTE | ~2022-01-26 | XR_ITS ---
EXAMINATION: XR PELVIS CLINICAL INFORMATION: Pain COMPARISON: Previous left hip x-ray February 2021 TECHNIQUE: AP view of the pelvis. FINDINGS: Bone alignment is normal. No fracture or dislocation. There is a osteophyte along the superior lateral left acetabulum. Joint spaces are otherwise normal. Bones of the pelvis are normal. Soft tissues are normal. XR/XR pelvis 1-2V IMPRESSION: Osteophyte along the superior lateral left acetabulum otherwise unremarkable exam.
== END 2022-01-26 10:36 | disposition home or self-care (01) ==
LOC: HO.HOSX 10:35
PROVIDERS: Visit Provider Orthopaedic Surgery
DX: M24.851 Other specific joint derangements of right hip, not elsewhere classified (principal); M24.852 Other specific joint derangements of left hip, not elsewhere classified; M16.0 Bilateral primary osteoarthritis of hip
CPT/HCPCS: 72170; 99202

== ENCOUNTER 2022-04-26 11:00 | Outpatient (RCR) | payer OTHER, SELFPAY ==
--- NOTE | 2022-01-20 10:51 | MHC.PT.EP ---
[facility] [place] Office [place] Office [place] Office [address] Alli Busch [address] [phone] F: [phone] F: [phone] F: [phone] F: [phone] Physical Therapy Plan of Care Date of Evaluation: Date of Surgery: Diagnosis: pain in R hip Assessment: 46 y/o R-hand female who presents with s/s consistent with L hip pain secondary to increased pain, posture, decreased hip and lumbar AROM, decreased strength (especially gluts), decreased activity tolerance and functional mobility resulting in pain and difficulty with prolonged sitting, driving, walking/hiking, and be on feet for longer periods of time. Patient is motivated with good rehab potential. Skilled PT will address impairments and functional limitations in order to achieve goals. Frequency and Duration: The patient will be seen 2x/week for 5 weeks Short Term Goals: 3 week COmpliant with HEP Improve L hip IR by 5 degrees to faciliate hip extension in terminal stance [facility] Goals: 5 weeks I with HEP and self management of sx I with lumbar roll in sitting without cues Pt will improve glut strength to 4/5 B to faciliate prolonged walking/hiking Improve LEFS to 60/80 Treatment Plan: Modalities to reduce pain, spasms and effusion. Manual therapy to restore motion and function. Therapeutic exercise to improve strength and flexibility. Neuromuscular re-education for posture and balance. Therapeutic activities to return to functional activities of daily living. Electronically signed by: Emily Kate PT Please sign and return to therapist. Thank you for your referral.
--- NOTE | 2022-04-28 13:57 | MHC.PT.DC ---
[facility] [place] Office [place] Office [place] Office [address] Alli Busch [address] [phone] F: [phone] F: [phone] F: [phone] F: [phone] Physical Therapy Discharge Report Diagnosis: pain in R hip Date of Surgery: n/a Date of Evaluation: 01/20/22 Date of Discharge: 04/28/22 Treatments to Date: 18 Cancellations to Date: 5 No Shows to Date: 0 Discharge Status: Improved Function Independent with HEP Discharge Summary: Pt has made improvements with hip ROM and strength however she is still having pain. She has f/u with MD for MRI. At this time d/c to I HEP Electronically signed by: Emily Kate PT Please sign and return to therapist. Thank you for your referral.
== END 2022-04-28 13:59 | disposition home or self-care (01) ==
LOC: HO.PTCHIC 11:00
PROVIDERS: PCP Family Medicine; Visit Provider Family Medicine
DX: M25.552 Pain in left hip (principal); M25.551 Pain in right hip
CPT/HCPCS: 97110; 97140; 97161; 97164; 97530

== ENCOUNTER 2022-05-01 13:32 | Outpatient (REF) | payer OTHER, SELFPAY ==
--- NOTE | ~2022-05-01 | MM_ITS ---
EXAMINATION: MM SCREENING DIGITAL BREAST TOMOSYNTHESIS, BILATERAL CLINICAL INFORMATION: Screening. Asymptomatic. The lifetime risk of breast cancer based on the Tyrer-Cuzick Model is 11.3%. COMPARISON: Mammography: June 17, 2020 and studies dating back to July 06, 2017 TECHNIQUE: Digital breast tomosynthesis is performed in both the craniocaudal and mediolateral oblique views along with computer-aided detection (CAD). Synthesized 2D images are generated from the tomosynthesis. FINDINGS: The breasts are extremely dense, which lowers the sensitivity of mammography (ACR BI-RADS breast composition Category d). There are no significant masses, abnormal calcifications, or other abnormalities. MM/MM tomosynthesis screening BI IMPRESSION: No significant changes ASSESSMENT: BI-RADS 11.3 RECOMMENDATION: Routine annual mammography screening. This patient's information was entered into a reminder system with a target due date for their next mammogram.
[2022-05-01 16:38] LABS: MANUAL DIFF FLAG NO
[2022-05-01 16:40] LABS: Appearance Urine Cloudy; Color Urine Yellow; Glucose Urine UA Negative (Negative); Leukocyte Esterase Urine Negative (Negative); Nitrite Urine Negative (Negative); PH 5.5 (5.0-9.0); Specific Gravity - Urine >= 1.030 (1.005-1.025); Urine Blood Negative (Negative); Urine Ketones Negative (Negative); Urine Protein Negative (Neg-Trace)
[2022-05-01 16:44] LABS: Basophils Percent Auto 0.4 % (0-2); Eosinophils Absolute Auto 0.1 X10*3/uL (0.0-0.4); Eosinophils Percent Auto 1.9 % (0-4); Hematocrit 37.8 % (37.0-47.0); Hemoglobin 11.6 g/dl (12.0-16.0); Imm Gran Abs Auto 0.02 X10*3/uL (0.00-0.03); Imm Gran Pct Auto 0.4 % (0.0-0.4); Lymphocytes Absolute Auto 1.6 X10*3/uL (1.2-4.9); Mean Corpuscular HGB Conc 30.7 g/dl (31.0-35.0); Mean Corpuscular Volume 78.3 fL (80.0-98.0); Monocytes Absolute Auto 0.4 X10*3/uL (0.1-1.2); Monocytes Percent Auto 6.7 % (2-11); Neutrophils Absolute Auto 3.2 x10*3/uL (2.0-8.3); Neutrophils Percent Auto 60.6 % (45-73); Platelet Count 173 X10*3/uL (160-400); Red Blood Count 4.83 X10*6/uL (4.20-5.50); Red Cell Distribution Width 16.2 % (11.0-16.0); White Blood Count 5.3 X10*3/uL (4.8-10.8)
[2022-05-01 18:12] LABS: Creatinine Urine 308.71 mg/dL; Microalbum/Creatinine Ratio Ur 6.8 ug/mg cr
[2022-05-01 18:22] LABS: Alanine Aminotransferase 15 U/L (0-31); Albumin Level 4.5 g/dL (3.5-5.0); Alkaline Phosphatase 96 U/L (39-117); Anion Gap 13 (12-20); Aspartate Amino Transferase 22 U/L (5-31); Bilirubin Total 0.8 mg/dL (0.0-1.0); Blood Urea Nitrogen 16 mg/dL (9-16); Calcium 9.6 mg/dL (8.4-10.2); Carbon Dioxide 26 mmol/L (22-29); Chloride 107 mmol/L (96-108); Cholesterol 185 mg/dL; Estimated Glomerular Filt Rate 52; Glucose Fasting 77 mg/dL (60-99); HDL Cholesterol 60 mg/dL; LDL Cholesterol Calculated 115 mg/dl; Potassium 4.3 mmol/L (3.3-5.1); Sodium 142 mmol/L (135-145); Total Protein 7.9 g/dL (6.5-8.0); Triglycerides 52 mg/dL
[2022-05-01 18:36] LABS: TSH reflex Free T4 0.79 uIU/mL (0.32-4.0)
== END 2022-05-01 13:33 | disposition home or self-care (01) ==
LOC: HO.MAMMO 13:32
PROVIDERS: Absent Provider Family Medicine; PCP Family Medicine; Visit Provider Obstetrics & Gynecology
DX: Z00.00 Encounter for general adult medical examination without abnormal findings (principal); Z12.31 Encounter for screening mammogram for malignant neoplasm of breast; R41.840 Attention and concentration deficit; I10 Essential (primary) hypertension
CPT/HCPCS: 36415; 77063; 77067; 80053; 80061; 81003; 82043; 84443; 85025

== ENCOUNTER 2022-06-02 13:52 | Outpatient (REF) | payer OTHER, SELFPAY ==
--- NOTE | ~2022-06-02 | FL_ITS ---
EXAMINATION: XR ARTHROGRAM HIP, LEFT CLINICAL INFORMATION: Left hip derangement. COMPARISON: 01/26/2022. TECHNIQUE: Fluoroscopic guided left hip intra-articular injection for MRI. Patient refused steroid injection at this time. FINDINGS: Informed consent was obtained from the patient prior to the procedure. During this process, the procedure and potential alternatives were explained, along with the intended outcome and benefits. The risks of the procedure, as well as the risk of not doing the procedure, were discussed. The patient was given the opportunity to ask questions regarding the procedure and appeared competent to make medical decisions. A signed consent form which documents this discussion was placed in the medical record. Using sterile technique and fluoroscopic guidance a 22-gauge spinal needle was directed down onto the left femoral neck. A small amount of contrast was then instilled demonstrating the needle to be intra-articular in position. A total of 12 mL of a mixture of 20 mL of sterile saline and 0.05 mg of Gadavist was placed within the joint. Patient tolerated procedure without difficulty. 9 mL of 1% lidocaine used for procedure. FLUOROSCOPY TIME: 0.5 minutes. DOSE AREA PRODUCT: 2.861 Gy-cm2 (morgan-centimeter squared) DLP: 35.571 milligray 2 images FL/FL arthrogram hip LT IMPRESSION: Intra-articular injection of the left hip for MRI.
--- NOTE | ~2022-06-02 | MR_ITS ---
EXAMINATION: MR HIP WITH CONTRAST, LEFT CLINICAL INFORMATION: Internal derangement. COMPARISON: Left hip fluoroscopic arthrography done earlier the same day. Pelvic radiographs dated 01/26/2022. TECHNIQUE: MRI of the left hip was performed after the intra-articular administration of a dilute gadolinium-containing solution on a high-field scanner. FINDINGS: ACETABULAR LABRUM: No contrast extending into the labral intrasubstance to suggest a labral tear. ARTICULAR CARTILAGE/BONE: Intact articular cartilage. No stress reaction, fracture, or avascular necrosis. No marrow edema or evidence of acute osseous injury. The alpha angle equals approximately 45 degrees as measured at the 3 o'clock position on the axial oblique images. The acetabular depth is within normal limits. MUSCLES/TENDONS: Mild gluteus minimus tendinosis. No measurable tendon tear or tendon retraction. JOINT FLUID/BURSA: Edema within the greater trochanteric bursa, consistent with minimal bursitis. INTRAPELVIC STRUCTURES: Partially visualized, fibroid uterus. MR/MR hip LT w con IMPRESSION: 1. No labral tear. 2. No acute osseous abnormality. No stress reaction, fracture, or avascular necrosis. 3. Mild gluteus minimus tendinosis. Minimal greater trochanteric bursitis. 4. Partially visualized, fibroid uterus.
== END 2022-06-02 13:53 | disposition home or self-care (01) ==
LOC: HO.XRAY 13:52
PROVIDERS: PCP Family Medicine; Visit Provider Orthopaedic Surgery
DX: M24.851 Other specific joint derangements of right hip, not elsewhere classified (principal); M24.852 Other specific joint derangements of left hip, not elsewhere classified
CPT/HCPCS: 27093; 73525; 73722

== ENCOUNTER → 2022-06-06 13:21 | Outpatient (REF) | payer OTHER, SELFPAY ==
--- NOTE | 2022-06-06 13:24 | CA_ITS ---
Transthoracic Echocardiogram Patient (Last, First, Middle): Madalyn Edgar, Gender: Female Date of : 1975 Age: 47 Procedure Date: 06/06/2022 Procedure Type: Transthoracic Echocardiogram Location: OP Height: 160.02 cm Weight: 79.38 kg BSA: 1.83 m2 Heart Rate: bpm BP: 202 / 102 mmHg Family Living Educator: SHADE Referring MD: Porfiroi Monahan MD Stationary Steam Engineer: Guy Madison MD Symptoms: R01.1 - Cardiac murmur, unspecified Study Quality: Adequate ECG Rhythm: Sinus Conclusions: - 1. Normal LV systolic function with mild LVH with pseudonormal filling pattern 2. Mild aortic stenosis 3. Normal RV systolic pressure 4. No pericardial effusion Findings Left Ventricle Normal left ventricular size and systolic function. There is mildly increased left ventricular wall thickness. The visually estimated ejection fraction is between 55-60%. Spectral Doppler is indicative of a pseudonormal filling pattern. E/E prime ratio is between 8 and 15 consistent with indeterminate filling pressures. Right Ventricle Normal right ventricular cavity size and systolic function. Atria The left atrium is normal in size. The right atrium is normal in size. Aortic Valve Normal aortic valve structure and function. There is mild aortic valve stenosis. The mean gradient is 10 mmHg. The aortic valve area is 1.58 cm2. There is no aortic valve regurgitation. Mitral Valve There is mild anterior and posterior mitral leaflet thickening. There is trace mitral valve regurgitation. There is no mitral valve stenosis. Pulmonic Valve The pulmonic valve was not well visualized. Tricuspid Valve Normal tricuspid valve structure. There is trace tricuspid valve regurgitation. The right ventricular systolic pressure is normal. The right ventricular systolic pressure is 13 mmHg. Normal right atrial pressure. There is no evidence of pulmonary hypertension. Great Vessels All visible segments of the aorta are normal in size. The pulmonary artery was not well visualized. Venous The inferior vena cava is normal in size and collapses greater than 50% with inspiration. Pericardium/Pleural There is no evidence of pericardial effusion. Measurements 2D Linear Measurements IVSd: 1.21 0.6-0.9/0.6-1.0 cm LVIDd: 4.53 3.9-5.3/4.2-5.9 cm LVIDd Index: 2.48 2.4-3.2/2.2-3.1 cm/m2 LVIDs: 3.02 2.0-3.6 cm LVPWd: 1.20 0.7-1.1 cm LA Diam: 3.50 2.7-3.8/3.0-4.0 cm LAIDs Index: 1.91 1.5-2.3 cm/m2 LV Mass: 250.95 67-162/88-224 g LV Mass Index: 137.13 43-95/49-115 g/m2 LVOT Diam: 1.80 3.0+(-)1.3 cm 2D Systolic Function EF 4C: 55.30 >55% EF 2C: 63.20 >55% EF BiP: 58.90 >55% Mitral Valve MV Pk E: 0.99 MV PK A: 0.93 MV Decel Time: 221.00 E/A: 1.10 E'Lateral: 8.24 E'Medial: 4.03 E/E' Med: 24.70 E/E' Lat: 12.10 PHT: 65.00 MVA PHT: 3.38 Decel Morrison: 4.49 Aortic Valve AoV Pk Jonathan: 2.34 AoV Mn Jonathan: 1.45 AoV VTI: 0.46 AoV Pk Grad: 22.00 Aov Mn Grad: 10.00 FLACA Cont.VTI: 1.58 LVOT LVOT Pk Jonathan: 1.40 LVOT Mn Jonathan: 0.90 LVOT VTI: 0.29 LVOT Pk Grad: 8.00 LVOT Mn Grad: 4.00 LVOT Diam: 1.80 LVOT Area: 2.54 Diastolic Function MV Pk E: 0.99 MV Pk A: 0.93 E/A: 1.10 E'Medial: 4.03 E/E' Med: 24.70 E' Laterial: 8.24 E/E' Lat: 12.10 Right Ventricle TAPSE (mm): 21.30 TVS' Jonathan: 10.70 Tricuspid Valve TR Pk Jonathan: 1.60 TR Pk Grad: 10.00 RA Press: 3.00 RVSP: 13.00 Great Vessels Aorta Sinus of Valsalva: 2.84 2.0-3.[address] [place]: 2.32 1.7-3.4 cm Ao Asc: 2.60 2.1-3.4 cm Updated in Other Vendor System with Status of Final Guy Madison MD electronically signed on 06/07/2022 5:10:43 PM with status of Final
== END ==
LOC: HO.CARD 13:21
PROVIDERS: PCP Family Medicine; Visit Provider Family Medicine
DX: R01.1 Cardiac murmur, unspecified (principal)
CPT/HCPCS: 93306

== ENCOUNTER → 2022-06-13 11:32 | Outpatient (BNVA) | payer OTHER, SELFPAY | PROVIDERS: PCP Family Medicine; Visit Provider Physician Assistant | DX: Z12.11 Encounter for screening for malignant neoplasm of colon (principal) | CPT/HCPCS: 99202 ==

== ENCOUNTER 2022-06-20 13:27 | Outpatient (REF) | payer OTHER, SELFPAY ==
--- NOTE | ~2022-06-20 | FL_ITS ---
PROCEDURE: XR ARTHROGRAM HIP, RIGHT CLINICAL INFORMATION: Right hip pain. Osteoarthritis. COMPARISON: None available. TECHNIQUE: Following explaining fluoroscopy-guided right hip arthrogram procedure, benefits and risk, a written consent was obtained. Patient was placed supine on fluoroscopy table and preliminary imaging was performed and an optimal site was selected along the right anterior hip. The area was marked with a marker. The marked area was cleaned and draped with 2% chlorhexidine solution. 1% lidocaine was injected at puncture site. Through a small skin incision a 22-gauge needle was advanced from the skin to the lateral border of right femoral neck and 2 mL of nonionic contrast was injected. A single image was obtained. Subsequently 0.1 mL of gadolinium diluted with 9 mL of saline and 1% lidocaine as a 10 mL volume was injected and needle withdrawn. Complete hemostasis achieved at puncture site with sterile Band-Aid applied postprocedure. Patient tolerated procedure extremely well. Please note patient refused steroid injection. FINDINGS: There are no fractures or dislocations. No joint effusion is identified. No bone, joint or soft tissue abnormality is demonstrated. Fluoroscopy-guided right hip diluted gadolinium injected. Patient was sent to MRI for further imaging. Patient refused steroid injection. FLUOROSCOPY TIME: 1.2 minutes DOSE AREA PRODUCT: 8.173 uGy-m2 (microgray-meter squared) FL/FL arthrogram hip RT IMPRESSION: Fluoroscopy-guided right hip diluted gadolinium performed. Patient was sent to MRI for further imaging.
--- NOTE | ~2022-06-20 | MR_ITS ---
EXAMINATION: MR HIP WITH CONTRAST, RIGHT CLINICAL INFORMATION: Right hip pain COMPARISON: None available. TECHNIQUE: MRI of the right hip was performed after the intra-articular administration of a dilute gadolinium-containing solution on a high-field scanner. FINDINGS: No focal articular cartilage defect or loose body. No labral tear demonstrated. No stress reaction, fracture, or evidence of avascular necrosis. No acute muscle strain or tear. Mild edema at the gluteus minimus insertion. No adenopathy. Uterine fibroids and nabothian cysts are incidentally noted. MR/MR hip RT w con IMPRESSION: Mild gluteus minimus insertional tendinitis. Otherwise unremarkable.
== END 2022-06-20 13:28 | disposition home or self-care (01) ==
LOC: HO.XRAY 13:27
PROVIDERS: PCP Family Medicine; Visit Provider Physician Assistant
DX: M25.551 Pain in right hip (principal); M25.552 Pain in left hip
CPT/HCPCS: 27093; 73525; 73722; A9585

== ENCOUNTER → 2022-06-23 11:00 | Outpatient (BNVA) | payer OTHER, SELFPAY | PROVIDERS: PCP Family Medicine; Visit Provider Orthopaedic Surgery ==

== ENCOUNTER 2022-06-26 11:58 | Outpatient (REF) | payer OTHER, SELFPAY ==
--- NOTE | ~2022-06-26 | US_ITS ---
EXAMINATION: US SCREENING ULTRASOUND BREAST, BILATERAL CLINICAL INFORMATION: Dense breasts on mammography. Screening ultrasound. Tyrer-Cuzick Score 11%. COMPARISON: Digital breast tomosynthesis 05/01/2022. TECHNIQUE: Ultrasound is performed using grayscale imaging and color Doppler. Imaging is performed to include the four quadrants and retroareolar region. Both breasts are imaged. FINDINGS: Right breast: There is no suspicious finding by ultrasound. There is no cystic or solid mass or focal architectural abnormality. Left breast: There is no suspicious finding by ultrasound. There is no cystic or solid mass or focal architectural abnormality. US/US breast RT complete IMPRESSION: Normal study. ASSESSMENT: BI-RADS 1: Negative RECOMMENDATION: Routine annual mammography screening. This patient's information was entered into a reminder system with a target due date for their next mammogram.
--- NOTE | ~2022-06-26 | US_ITS ---
EXAMINATION: US SCREENING ULTRASOUND BREAST, BILATERAL CLINICAL INFORMATION: Dense breasts on mammography. Screening ultrasound. Tyrer-Cuzick Score 11%. COMPARISON: Digital breast tomosynthesis 05/01/2022. TECHNIQUE: Ultrasound is performed using grayscale imaging and color Doppler. Imaging is performed to include the four quadrants and retroareolar region. Both breasts are imaged. FINDINGS: Right breast: There is no suspicious finding by ultrasound. There is no cystic or solid mass or focal architectural abnormality. Left breast: There is no suspicious finding by ultrasound. There is no cystic or solid mass or focal architectural abnormality. US/US breast LT complete IMPRESSION: Normal study. ASSESSMENT: BI-RADS 1: Negative RECOMMENDATION: Routine annual mammography screening. This patient's information was entered into a reminder system with a target due date for their next mammogram.
== END 2022-06-26 11:59 | disposition home or self-care (01) ==
LOC: HO.MAMMO 11:58
PROVIDERS: PCP Family Medicine; Visit Provider Family Medicine
DX: R92.2 Inconclusive mammogram (principal)
CPT/HCPCS: 76641; 76642

== ENCOUNTER → 2022-08-08 14:07 | Outpatient (BNVA) | payer OTHER, SELFPAY | PROVIDERS: PCP Family Medicine; Referring Provider Family Medicine; Visit Provider Internal Medicine Cardiovascular Disease | DX: I35.0 Nonrheumatic aortic (valve) stenosis (principal) | CPT/HCPCS: 93005; 99202 ==

== ENCOUNTER 2022-09-04 14:18 | Emergency (ER) | payer OTHER, SELFPAY ==
--- NOTE | ~2022-09-04 | CT_ITS ---
EXAMINATION: CT HEAD WITHOUT CONTRAST CLINICAL INFORMATION: Hypertension. Amnesia. COMPARISON: None available. TECHNIQUE: Contiguous axial imaging was performed from the skull base to vertex without intravenous administration of contrast. This CT examination was performed using dose optimization techniques as appropriate, variously including the following: *Automated exposure control. *Adjustment of mA and/or kV according to patient size (this includes techniques or standardized protocols for targeted exams where dose is matched to indication/reason for exam; i.e. extremities or head). *Use of iterative reconstruction technique. DLP: Under 96 mGy-cm FINDINGS: There is no evidence of acute intracranial hemorrhage or edematous territorial infarction. [place]-white matter differentiation is preserved. There is no abnormal attenuation within the brain parenchyma. The ventricles are normal in morphology and size. No evidence for obstructive hydrocephalus. No abnormal mass effect or midline shift. No extra-axial fluid collections. No acute soft tissue or osseous abnormalities. Mild mucosal thickening of the paranasal sinuses. The mastoid air cells and middle ear cavities are clear. CT/CT head/brain wo IV con IMPRESSION: No evidence of acute intracranial hemorrhage or edematous territorial infarction.
[2022-09-04 14:32] VITALS: BP 202/91; PULSE 72; RESP 18; TEMP 36.9; O2SAT 99; BMI 30.6
--- NOTE | 2022-09-04 14:39 | ECG_ITS ---
Test Reason : hypertensive Blood Pressure : / mmHG Vent. Rate : 076 BPM Atrial Rate : 076 BPM P-R Int : 150 ms QRS Dur : 084 ms QT Int : 384 ms P-R-T Axes : 051 -02 008 degrees QTc Int : 432 ms Normal sinus rhythm Moderate voltage criteria for LVH, may be normal variant ( R in aVL , [place] product ) Borderline ECG When compared with ECG of 03-MAR-2019 00:23, T wave amplitude has decreased in Anterior leads Referred By: Harvinder Dominguez Electronically Signed By:GREGORIO BUTLER MD
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
[2022-09-04 14:55] LABS: MANUAL DIFF FLAG NO
[2022-09-04 14:59] LABS: Basophils Percent Auto 0.6 % (0-2); Eosinophils Absolute Auto 0.2 X10*3/uL (0.0-0.4); Eosinophils Percent Auto 3.6 % (0-4); Hematocrit 38.3 % (37.0-47.0); Hemoglobin 12.2 g/dl (12.0-16.0); Imm Gran Abs Auto 0.01 X10*3/uL (0.00-0.03); Imm Gran Pct Auto 0.2 % (0.0-0.4); Lymphocytes Absolute Auto 1.2 X10*3/uL (1.2-4.9); Lymphocytes Percent Auto 22.2 % (20-40); Mean Corpuscular HGB Conc 31.9 g/dl (31.0-35.0); Mean Corpuscular Hemoglobin 26.4 pg (27.0-33.0); Mean Corpuscular Volume 82.9 fL (80.0-98.0); Mean Platelet Volume 12.5 fL (9.4-12.3); Monocytes Absolute Auto 0.3 X10*3/uL (0.1-1.2); Monocytes Percent Auto 5.9 % (2-11); Neutrophils Absolute Auto 3.5 x10*3/uL (2.0-8.3); Neutrophils Percent Auto 67.5 % (45-73); Platelet Count 166 X10*3/uL (160-400); Red Blood Count 4.62 X10*6/uL (4.20-5.50); Red Cell Distribution Width 14.2 % (11.0-16.0); White Blood Count 5.2 X10*3/uL (4.8-10.8)
[2022-09-04 15:03] LABS: Prothrombin Time 11.1 SEC (10.0-13.1)
[2022-09-04 15:06] LABS: Partial Thromboplastin Time 37.7 SEC (26.0-36.4)
[2022-09-04 15:09] VITALS: BP 190/105; PULSE 76; RESP 16; TEMP 36.8; O2SAT 97
--- NOTE | 2022-09-04 15:11 | PC.NURSE ---
alert and oriented, resp even and unlabored. pt ambulates with steady gait, awaiting ct scan. denies any pain. neuros intact, equal strength in all extremities
[2022-09-04 15:22] LABS: Troponin-I High Sensitivity 2.8 ng/L (<3.5-17.0)
[2022-09-04 15:45] LABS: Alanine Aminotransferase 16 U/L (0-31); Albumin Level 4.2 g/dL (3.5-5.0); Alkaline Phosphatase 99 U/L (39-117); Anion Gap 12 (12-20); Aspartate Amino Transferase 20 U/L (5-31); Bilirubin Total 0.7 mg/dL (0.0-1.0); Blood Urea Nitrogen 13 mg/dL (9-16); Calcium 9.9 mg/dL (8.4-10.2); Carbon Dioxide 26 mmol/L (22-29); Chloride 107 mmol/L (96-108); Creatinine Clr Calc Pharmacy 58.9; Estimated Glomerular Filt Rate 50; Glucose Random 94 mg/dL (60-115); Potassium 4.2 mmol/L (3.3-5.1); Sodium 141 mmol/L (135-145); Total Protein 7.5 g/dL (6.5-8.0)
[2022-09-04 16:12] VITALS: BP 195/89
== END 2022-09-04 16:13 | disposition home or self-care (01) ==
PROVIDERS: Physician Assistant; Emergency Provider Emergency Medicine
DX: R41.3 Other amnesia (principal); R03.0 Elevated blood-pressure reading, without diagnosis of hypertension; F43.0 Acute stress reaction; R94.31 Abnormal electrocardiogram [ECG] [EKG]; Z79.899 Other long term (current) drug therapy
CPT/HCPCS: 36415; 70450; 80053; 84484; 85025; 85610; 85730; 93005; 99284

== ENCOUNTER 2022-09-19 11:00 | Outpatient (RCR) | payer OTHER, SELFPAY ==
--- NOTE | 2022-08-03 12:48 | MHC.PT.EP ---
[facility] [place] [facility] [place] Office [place] Office [address] Alli Busch [address] [phone] F: [phone] F: [phone] F: [phone] F: [phone] Physical Therapy Plan of Care Date of Evaluation: Date of Surgery: Diagnosis: This is a 47 yo female presenting to skilled PT with a script for B hip snapping. Assessment: This is a 47 yo female presenting to skilled PT with a script for B hip snapping. Eval from 01/20/22: Reports B hip pain for over 10 years (L>R) and it has been worsening over the past year. She is not sure if this is due to increasing activities such as hiking everyday (25-60minutes). She had PT for 26 visits which helped her and she was still doing her exercises but inconsistently. Aggravated with driving prolonged periods, sitting for prolonged periods, hiking for prolonged periods. SHe feels she needs to 'pop' her hips for relief. It is more painful at night as well. She went on to have 18 visits on PT and was DC on 04/28/22, DC report states: Pt has made improvements with hip ROM and strength however she is still having pain. She has f/u with for MRI. At this time d/c to I HEP. Note from ortho: She can ambulate for ~1 mile without pain before she feels limited, though her chief complaint of pain is standing from a seated position after prolonged sitting. She continues to work with PT. I discussed her diagnosis and reviewed her MRI with her. I recommend she continue with PT for iliopsoas stretching and strengthening, as well as her at-home exercises. No intervention warranted at this time. I ordered more PT. She can follow up prn. If her symptoms persist or worsen she can follow up to discuss a steroid injection. She returns again with ongoing pain still. She had the MRI performed which reports FINDINGS: No focal articular cartilage defect or loose body. No labral tear demonstrated. No stress reaction, fracture, or evidence of avascular necrosis. No acute muscle strain or tear. Mild edema at the gluteus minimus insertion. No adenopathy. Uterine fibroids and nabothian cysts are incidentally noted. MR/MR hip RT w con IMPRESSION: Mild gluteus minimus insertional tendinitis. Otherwise unremarkable. She states that she has been continuing her previous HEP and added to this as well (goes to the gym 1x/wk). Her snapping has improved to where she can go a couple of days without snapping. However, she wants this to be completely gone. She reports that she normally doesn't have too much pain unless she sits for too long >1 hr, at night sleeping or walking >1 mile. Her L is worse than the R. She pops her hip with hip extension and trunk flexion. When she does have pain it starts in the glut and radiates to the groin. Assessment reveals minimal pain at rest but increases with sitting, walking and sleeping. Patient demos normal hip ROM but decreased glut strength, pelvic alignment, TTP at R piri, hypomobility at upper and lower lumbar spine and decreased core strength. Based on functional limitations, impaired QOL and decreased pain management/tolerance, patient is a good candidate for skilled PT 2x/wk for 6 wks. Frequency and Duration: The patient will be seen 2x/wk for 6 wks Short Term Goals: In 3 wks: I in HEP Discuss alternative tx ideas as this is her 3rd round of PT with continuation of pain; pelvic floor, acupuncture, pain management Long-Term Goals: In 5 wks: I with HEP and self management of sx Pt will improve glut strength to 4+/5 B Improve LEFS by at least 10 points Demo proper squatting and lifting techniques, proper sitting posture and transfer techniques Treatment Plan: Modalities to reduce pain, spasms and effusion. Manual therapy to restore motion and function. Therapeutic exercise to improve strength and flexibility. Neuromuscular re-education for posture and balance. Therapeutic activities to return to functional activities of daily living. Electronically signed by: Cathy Gregg PT Please sign and return to therapist. Thank you for your referral.
--- NOTE | 2022-10-20 09:49 | MHC.PT.DC ---
[facility] [place] Office [place] Office [place] [facility] [address] Alli Busch [address] [phone] F: [phone] F: [phone] F: [phone] F: [phone] Physical Therapy Discharge Report Diagnosis: This is a 47 yo female presenting to skilled PT with a script for B hip snapping. Date of Surgery: Date of Evaluation: 08/03/22 Date of Discharge: 10/20/22 Treatments to Date: 7 Cancellations to Date: 0 No Shows to Date: 0 Discharge Status: Discharge Summary: Patient came to 7 visits since starting PT in July. Per last tx note, pt noted pain with s/l pos stretch L SI and she was fatigued after exs but did not c/o other pain and felt looser after stretches. Patient did not return to PT, chart was kept open for 30 days and then DC'd as she had no other appointments booked. DC to [facility]. Electronically signed by: Cathy Gregg, PT Please sign and return to therapist. Thank you for your referral.
== END 2022-10-20 09:50 | disposition home or self-care (01) ==
LOC: HO.PTCHIC 11:00
PROVIDERS: PCP Family Medicine; Visit Provider Orthopaedic Surgery
DX: M24.851 Other specific joint derangements of right hip, not elsewhere classified (principal); M24.852 Other specific joint derangements of left hip, not elsewhere classified
CPT/HCPCS: 97110; 97140; 97161; 97162; 97530

== ENCOUNTER → 2023-05-08 14:00 | Outpatient (BNV) | payer OTHER, SELFPAY | PROVIDERS: PCP Family Medicine; Visit Provider Radiology Diagnostic Radiology | DX: Z12.31 Encounter for screening mammogram for malignant neoplasm of breast (principal) | CPT/HCPCS: 77063; 77067 ==

== ENCOUNTER 2023-05-08 14:09 | Outpatient (REF) | payer OTHER, SELFPAY | END 2023-05-08 14:10 | disposition home or self-care (01) | LOC: HO.MAMMO 14:09 | PROVIDERS: PCP Family Medicine; Visit Provider Family Medicine | DX: Z12.31 Encounter for screening mammogram for malignant neoplasm of breast (principal) | CPT/HCPCS: 77063; 77067 ==

== ENCOUNTER 2023-05-21 08:57 | Outpatient (AMB) | payer OTHER, SELFPAY ==
[2023-05-21 09:23] VITALS: BP 154/71; PULSE 55; O2SAT 99; BMI 33.8
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
== END 2023-05-21 10:20 | disposition home or self-care (01) ==
PROVIDERS: PCP Family Medicine; Visit Provider Family Medicine
DX: Z00.00 Encounter for general adult medical examination without abnormal findings (principal); I10 Essential (primary) hypertension; I35.0 Nonrheumatic aortic (valve) stenosis; R41.840 Attention and concentration deficit; Z12.11 Encounter for screening for malignant neoplasm of colon; Z12.39 Encounter for other screening for malignant neoplasm of breast
CPT/HCPCS: 99214; 99396

== ENCOUNTER 2023-05-21 10:30 | Outpatient (REF) | payer OTHER, SELFPAY ==
[2023-05-21 14:24] LABS: MANUAL DIFF FLAG NO
[2023-05-21 14:35] LABS: Basophils Percent Auto 0.6 % (0-2); Eosinophils Absolute Auto 0.1 X10*3/uL (0.0-0.4); Eosinophils Percent Auto 1.8 % (0-4); Hematocrit 38.2 % (37.0-47.0); Hemoglobin 12.2 g/dl (12.0-16.0); Imm Gran Abs Auto 0.03 X10*3/uL (0.00-0.03); Imm Gran Pct Auto 0.6 % (0.0-0.4); Lymphocytes Absolute Auto 1.4 X10*3/uL (1.2-4.9); Mean Corpuscular HGB Conc 31.9 g/dl (31.0-35.0); Mean Corpuscular Hemoglobin 26.6 pg (27.0-33.0); Mean Corpuscular Volume 83.4 fL (80.0-98.0); Mean Platelet Volume 12.9 fL (9.4-12.3); Monocytes Absolute Auto 0.3 X10*3/uL (0.1-1.2); Monocytes Percent Auto 5.6 % (2-11); Neutrophils Absolute Auto 3.2 x10*3/uL (2.0-8.3); Neutrophils Percent Auto 63.4 % (45-73); Platelet Count 166 X10*3/uL (160-400); Red Blood Count 4.58 X10*6/uL (4.20-5.50); Red Cell Distribution Width 13.8 % (11.0-16.0)
[2023-05-21 15:05] LABS: Alanine Aminotransferase 11 U/L (0-31); Alkaline Phosphatase 79 U/L (39-117); Anion Gap 9 (12-20); Aspartate Amino Transferase 14 U/L (5-31); Bilirubin Total 0.4 mg/dL (0.0-1.0); Blood Urea Nitrogen 13 mg/dL (9-16); Calcium 9.3 mg/dL (8.4-10.2); Carbon Dioxide 28 mmol/L (22-29); Chloride 108 mmol/L (96-108); Cholesterol 191 mg/dL (<200); Estimated Glomerular Filt Rate > 60; Glucose Fasting 96 mg/dL (60-99); HDL Cholesterol 57 mg/dL (>40); LDL Cholesterol Calculated 120 mg/dL (<100); Sodium 141 mmol/L (135-145); Total Protein 7.4 g/dL (6.5-8.0); Triglycerides 73 mg/dL (<150)
[2023-05-21 15:20] LABS: TSH reflex Free T4 1.12 uIU/mL (0.32-4.0)
== END 2023-05-21 10:31 | disposition home or self-care (01) ==
LOC: HO.WFDLDS 10:30
PROVIDERS: Visit Provider Family Medicine
DX: Z00.00 Encounter for general adult medical examination without abnormal findings (principal); Z13.220 Encounter for screening for lipoid disorders; Z13.29 Encounter for screening for other suspected endocrine disorder
CPT/HCPCS: 36415; 80053; 80061; 84443; 85025

== ENCOUNTER 2023-06-25 14:15 | Outpatient (AMB) | payer OTHER, SELFPAY ==
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
== END 2023-06-25 16:45 | disposition home or self-care (01) ==
PROVIDERS: PCP Family Medicine; Visit Provider Family Medicine
DX: I10 Essential (primary) hypertension (principal); Z12.39 Encounter for other screening for malignant neoplasm of breast; E66.9 Obesity, unspecified
CPT/HCPCS: 99212

== ENCOUNTER → 2023-08-09 11:07 | Outpatient (REF) | payer OTHER, SELFPAY ==
--- NOTE | 2023-08-09 11:09 | CA_ITS ---
Transthoracic Echocardiogram Patient (Last, First, Middle): Madalyn Edgar, Gender: Female Date of : 1975 Age: 48 Procedure Date: 08/09/2023 Procedure Type: Transthoracic Echocardiogram Location: OP Height: 160.02 cm Weight: 83.92 kg BSA: 1.87 m2 Heart Rate: bpm BP: 128 / 80 mmHg Supervisor Beet End: SHADE Referring MD: Guy Madison MD Symptoms: I35.0 - Nonrheumatic aortic (valve) stenosis Study Quality: Adequate ECG Rhythm: Sinus Conclusions: - The left ventricular systolic function is normal. The calculated ejection fraction is 63% by biplane method. - Gradients across aortic valve slightly elevated but valve leaflets seem to be opening well. Doubt any significant aortic stenosis. Could be related to high stroke volume based on LVOT VTi. Findings Left Ventricle Normal left ventricular cavity size. There is normal left ventricular wall thickness. The left ventricular systolic function is normal. The calculated ejection fraction is 63% by biplane method. There is no evidence of regional wall motion abnormalities. Diastolic function is normal for age. LV peak GLS -20.4%. Right Ventricle Normal right ventricular cavity size and systolic function. Atria Both atria are normal in size. Aortic Valve There is a normal trileaflet aortic valve. There is no aortic valve regurgitation. Gradients across aortic valve slightly elevated but valve leaflets seem to be opening well. Doubt any significant aortic stenosis. Could be related to high stroke volume based on LVOT VTi. Mitral Valve The mitral valve appears normal. There is no mitral valve regurgitation. There is no mitral valve stenosis. Pulmonic Valve The pulmonic valve is likely normal. Tricuspid Valve There is trace tricuspid valve regurgitation. There is no evidence of pulmonary hypertension. Great Vessels The asc aorta is normal in size. Venous The inferior vena cava is normal in size and collapses greater than 50% with inspiration. Pericardium/Pleural There is no evidence of pericardial effusion. Prior Study Comparison No significant change compared to prior study dated: 06/06/2022. Measurements 2D Linear Measurements IVSd: 0.83 0.6-0.9/0.6-1.0 cm LVIDd: 4.76 3.9-5.3/4.2-5.9 cm LVIDd Index: 2.55 2.4-3.2/2.2-3.1 cm/m2 LVIDs: 2.90 2.0-3.6 cm LVPWd: 1.01 0.7-1.1 cm LA Diam: 3.40 2.7-3.8/3.0-4.0 cm LAIDs Index: 1.82 1.5-2.3 cm/m2 LV Mass: 186.83 67-162/88-224 g LV Mass Index: 99.91 43-95/49-115 g/m2 LVOT Diam: 1.80 3.0+(-)1.3 cm 2D Systolic Function EF 4C: 66.40 >55% EF 2C: 60.20 >55% EF BiP: 63.40 >55% Mitral Valve MV Pk E: 1.04 MV PK A: 0.83 MV Decel Time: 177.00 E/A: 1.30 E'Lateral: 7.94 E'Medial: 7.83 E/E' Med: 13.30 E/E' Lat: 13.10 PHT: 52.00 MVA PHT: 4.23 Decel [place]: 5.88 Aortic Valve AoV Pk Jonathan: 2.32 AoV Mn Jonathan: 1.53 AoV VTI: 0.48 AoV Pk Grad: 22.00 Aov Mn Grad: 11.00 FLACA Cont.VTI: 1.53 LVOT LVOT Pk Jonathan: 1.38 LVOT Mn Jonathan: 0.86 LVOT VTI: 0.29 LVOT Pk Grad: 8.00 LVOT Mn Grad: 4.00 LVOT Diam: 1.80 LVOT Area: 2.54 Diastolic Function MV Pk E: 1.04 MV Pk A: 0.83 E/A: 1.30 E'Medial: 7.83 E/E' Med: 13.30 E' Laterial: 7.94 E/E' Lat: 13.10 Right Ventricle TAPSE (mm): 21.10 TVS' Jonathan: 13.20 Tricuspid Valve TR Pk Jonathan: 2.16 TR Pk Grad: 19.00 RA Press: 3.00 RVSP: 22.00 Great Vessels Aorta Sinus of Valsalva: 2.45 2.0-3.5 cm Ao Asc: 2.60 2.1-3.4 cm Updated in Other Vendor System with Status of Final Pradeep Braun MD electronically signed on 08/11/2023 11:08:07 AM with status of Final
== END ==
LOC: HO.CARD 11:07
PROVIDERS: PCP Family Medicine; Visit Provider Internal Medicine Cardiovascular Disease
DX: I35.0 Nonrheumatic aortic (valve) stenosis (principal)
CPT/HCPCS: 93306; 93356

== ENCOUNTER → 2023-08-09 11:09 | Outpatient (BNV) | payer OTHER, SELFPAY | PROVIDERS: PCP Family Medicine; Visit Provider Internal Medicine | DX: I35.0 Nonrheumatic aortic (valve) stenosis (principal) | CPT/HCPCS: 93306; 93356 ==

== ENCOUNTER 2023-08-29 08:44 | Outpatient (AMB) | payer OTHER, SELFPAY ==
[2023-08-29 09:03] VITALS: BP 120/80; PULSE 55; BMI 28.9
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
== END 2023-08-29 09:25 | disposition home or self-care (01) ==
PROVIDERS: PCP Family Medicine; Visit Provider Internal Medicine Cardiovascular Disease
DX: I35.0 Nonrheumatic aortic (valve) stenosis (principal); I10 Essential (primary) hypertension
CPT/HCPCS: 93010; 99214

== ENCOUNTER → 2023-08-29 08:44 | Outpatient (BNVA) | payer OTHER, SELFPAY | PROVIDERS: PCP Family Medicine; Visit Provider Internal Medicine Cardiovascular Disease | DX: I35.0 Nonrheumatic aortic (valve) stenosis (principal); I10 Essential (primary) hypertension | CPT/HCPCS: 93005; 99212 ==

== ENCOUNTER 2023-11-23 11:48 | Outpatient (AMB) | payer OTHER, SELFPAY ==
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
[2023-11-23 11:58] VITALS: BP 120/80; PULSE 63; RESP 16; TEMP 36.6; O2SAT 99; BMI 31.0
== END 2023-11-23 12:31 | disposition home or self-care (01) ==
PROVIDERS: PCP Family Medicine; Visit Provider Family Medicine
DX: I10 Essential (primary) hypertension (principal); R01.1 Cardiac murmur, unspecified; L30.9 Dermatitis, unspecified
CPT/HCPCS: 99214

== ENCOUNTER 2024-03-21 13:34 | Outpatient (AMB) | payer OTHER, SELFPAY ==
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
[2024-03-21 13:42] VITALS: BP 102/74; PULSE 79; O2SAT 99
== END 2024-03-21 14:10 | disposition home or self-care (01) ==
PROVIDERS: PCP Family Medicine; Visit Provider Family Medicine
DX: I10 Essential (primary) hypertension (principal); R25.2 Cramp and spasm; R01.1 Cardiac murmur, unspecified

== ENCOUNTER → 2024-03-21 13:34 | Outpatient (BNVA) | payer OTHER, SELFPAY | PROVIDERS: PCP Family Medicine; Visit Provider Family Medicine | DX: I10 Essential (primary) hypertension (principal); R25.2 Cramp and spasm; R01.1 Cardiac murmur, unspecified | CPT/HCPCS: 96127; 99212 ==

== ENCOUNTER 2024-03-21 14:18 | Outpatient (REF) | payer OTHER, SELFPAY ==
[2024-03-21 17:34] LABS: Appearance Urine Turbid; Color Urine Yellow; Glucose Urine UA Negative (Negative); Leukocyte Esterase Urine Negative (Negative); Nitrite Urine Negative (Negative); PH 5.5 (5.0-9.0); Specific Gravity - Urine 1.025 (1.005-1.025); Urine Blood Negative (Negative); Urine Ketones Negative (Negative); Urine Protein Negative (Neg-Trace)
[2024-03-21 17:47] LABS: Microalbum/Creatinine Ratio Ur 5.6 ug/mg cr (<30)
[2024-03-21 17:49] LABS: Alanine Aminotransferase 22 U/L (0-31); Albumin Level 4.6 g/dL (3.5-5.0); Alkaline Phosphatase 103 U/L (39-117); Anion Gap 12 (12-20); Aspartate Amino Transferase 30 U/L (5-31); Bilirubin Total 0.9 mg/dL (0.0-1.0); Blood Urea Nitrogen 18 mg/dL (9-16); Calcium 9.8 mg/dL (8.4-10.2); Carbon Dioxide 30 mmol/L (22-29); Chloride 98 mmol/L (96-108); Estimated Glomerular Filt Rate 60; Glucose Random 93 mg/dL (60-115); Magnesium 2.4 mg/dL (1.6-2.6); Potassium 4.1 mmol/L (3.3-5.1); Sodium 136 mmol/L (135-145); Total Protein 8.5 g/dL (6.5-8.0)
== END 2024-03-21 14:19 | disposition home or self-care (01) ==
LOC: HO.WFDLDS 14:18
PROVIDERS: Visit Provider Family Medicine
DX: Z00.00 Encounter for general adult medical examination without abnormal findings (principal); I10 Essential (primary) hypertension; R25.2 Cramp and spasm
CPT/HCPCS: 36415; 80053; 81003; 82043; 82570; 83735

== ENCOUNTER 2024-05-08 | Outpatient (REF) | payer OTHER, SELFPAY ==
--- OUTSIDE RECORDS SUMMARY | 2024-05-09 11:22 | XMS_ITS | Clinical Summary ---
Author Organization [facility] Address [address] [place] [address] Care Team Providers Care Russian Rubber Name Role Phone Unavailable Primary Care Provider [...]
[2024-05-09 12:01] LABS: Influenza A PCR POSITIVE (Negative); Influenza B PCR NEGATIVE (Negative); Resp Syncy Virus RNA Qual PCR NEGATIVE (Negative); SARS COV2 PCR INHOUSE NEGATIVE (Negative)
== END 2024-05-08 00:01 | disposition home or self-care (01) ==
LOC: HO.LNP
PROVIDERS: Visit Provider Physician Assistant Medical
DX: R09.89 Other specified symptoms and signs involving the circulatory and respiratory systems (principal); Z13.9 Encounter for screening, unspecified
CPT/HCPCS: 0241U

== ENCOUNTER 2024-05-08 09:16 | Outpatient (AMB) | payer OTHER, SELFPAY ==
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
[2024-05-08 09:33] VITALS: BP 138/62; PULSE 77; RESP 14; TEMP 37.1; O2SAT 96
== END 2024-05-08 12:04 | disposition home or self-care (01) ==
PROVIDERS: PCP Family Medicine; Visit Provider Physician Assistant Medical
DX: J02.9 Acute pharyngitis, unspecified (principal); R05.9 Cough, unspecified; R50.9 Fever, unspecified

== ENCOUNTER 2024-05-08 09:16 | Outpatient (REF) | payer OTHER, SELFPAY ==
--- NOTE | ~2024-05-08 | XR_ITS ---
EXAMINATION: XR CHEST CLINICAL INFORMATION: R05.9 - Cough, unspecified COMPARISON: 03/03/2019. TECHNIQUE: 2 views of the chest were obtained. FINDINGS: The cardiac, hilar, and mediastinal contours are normal. The lungs are clear bilaterally. There is no pneumothorax or pleural effusion. There is no focal osseous or soft tissue abnormality. XR/XR chest 2V IMPRESSION: Normal chest. Electronically signed by: Bijan Diaz MD 05/08/2024 11:21 AM [place]
--- OUTSIDE RECORDS SUMMARY | 2024-05-08 13:31 | XMS_ITS | Clinical Summary ---
Author Organization [facility] Address [address] [place] [address] Care Team Providers Care [place] Swage Operator Name Role Phone Unavailable Primary Care Provider Unavailabl e Social History Tobacco Use Types Packs/Day Years Used Date Smoking Tobacco: Never Assessed Sex and Gender Information Value Date Recorded Sex Assigned at Not on file Gender Identity Not on file Sexual Orientation Not on file Plan of Treatment Health Maintenance Due Date Last Done Comments Hepatitis C Virus Screening 1975 HIV Screening 1988 DTaP/Tdap/Td Vaccines (1 - Tdap) 1994 Hepatitis B Vaccines (1 of 3 - 19+ 3-dose series) 1994 Pap Smear (Ages 21-65) 1996 Mammogram 2015 Colonoscopy 2020 Influenza Vaccine 11/08/2023 COVID-19 Vaccine ( - 2023-2 5 season) 2023 Pneumococcal Vaccine: Pediat monique (0-5 Years) and At-Risk Patients (6 to 49 Years) Aged Out No longer eligible b ased on patient's age to complete this topic
== END 2024-05-08 09:17 | disposition home or self-care (01) ==
LOC: HO.LAB 09:16
PROVIDERS: PCP Family Medicine; Visit Provider Physician Assistant Medical
DX: R05.9 Cough, unspecified (principal)
CPT/HCPCS: 36415; 71046; 96127; 99212

== ENCOUNTER → 2024-05-08 10:46 | Outpatient (BNV) | payer OTHER, SELFPAY | PROVIDERS: PCP Family Medicine; Visit Provider Radiology Diagnostic Radiology | DX: R05.9 Cough, unspecified (principal) | CPT/HCPCS: 71046 ==

== ENCOUNTER → 2024-05-23 12:45 | Outpatient (BNV) | payer OTHER, SELFPAY | PROVIDERS: PCP Family Medicine; Visit Provider Internal Medicine | DX: Z12.31 Encounter for screening mammogram for malignant neoplasm of breast (principal) | CPT/HCPCS: 77063; 77067 ==

== ENCOUNTER 2024-05-23 13:00 | Outpatient (REF) | payer OTHER, SELFPAY ==
--- OUTSIDE RECORDS SUMMARY | 2024-05-23 13:23 | XMS_ITS | Clinical Summary ---
Author Organization [facility] Address [address] [place] [address] Care Team Providers Care Drupal Php Developer Name Role Phone Unavailable Primary Care Provider [...]
== END 2024-05-23 13:01 | disposition home or self-care (01) ==
LOC: HO.MAMMO 13:00
PROVIDERS: PCP Family Medicine; Visit Provider Family Medicine
DX: Z12.31 Encounter for screening mammogram for malignant neoplasm of breast (principal)
CPT/HCPCS: 77063; 77067

== ENCOUNTER 2024-06-16 09:05 | Day surgery (SDC) | payer OTHER, SELFPAY ==
--- OUTSIDE RECORDS SUMMARY | 2024-05-27 12:21 | XMS_ITS | Clinical Summary ---
Author Organization [facility] Address [address] [place] [address] Care Team Providers Care Supervisor Lead Burning Name Role Phone Unavailable Primary Care Provider [...]
[2024-06-12 13:51] VITALS: BMI 31.2
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
[2024-06-16 09:15] VITALS: BMI 31.9
[2024-06-16] MEDS: Lactated Ringers 1,000 ML 100 ML IVCONT (09:21)
[2024-06-16 09:30] LABS: UPreg QC Valid YES; Urine Pregnancy NEGATIVE (NEGATIVE)
[2024-06-16 09:36] VITALS: BP 130/53; PULSE 80; RESP 18; TEMP 36.8; O2SAT 98
[2024-06-16 10:31] VITALS: BP 112/71; PULSE 80; RESP 18; TEMP 36.6; O2SAT 100
--- NOTE | 2024-06-16 10:31 | P.OPN-COLO_ITS ---
Colonoscopy Operative Note Operative Note Date of Service: 06/16/24 Narrative: COLONOSCOPY TILL CECUM Pre-op diagnosis: Colon cancer screening (first colon). Post-op diagnosis:? Diverticulosis, hemorrhoids Endoscopist:? Dilip Avendano MD Anesthesia:?MAC Consent: Indications for the procedure and potential complications of bleeding, perforation, reaction to medications and missed diagnosis were discussed with the patient and informed consent was obtained. Instrument: Olympus PCF H 190 L variable stiffness pediatric colonoscope Monitoring: Vital signs and clinical assessment, intermittent blood pressure monitoring, continuous EKG monitoring, Pulse oximetry and Carbon Dioxide monitoring were done throughout the procedure. Please see anesthesia flowsheet. Colon withdrawl time was 12 minutes. Procedure: The patient was placed in the left lateral decubitis position and pre-procedure medications were administered. After a digital rectal examination of the ano-rectum, the video colonoscope was inserted into the rectum and advanced through the colon to the cecum. The colonoscope was slowly withdrawn in a retrograde panoramic fashion and the colon mucosa was carefully examined including a retroflexed view of the rectum. Findings and interventions are described below. Procedure Difficulty: Colon was long and tortuous and there was some loop formation Findings: Terminal Ileum: Not evaluated Cecum: Normal Ascending Colon: Normal Transverse Colon: Normal Descending Colon: Normal Sigmoid Colon: Moderate diverticulosis Rectum: Normal Ano-rectum: Small internal hemorrhoids Colon preparation: Good after some irrigation. [place] Bowel Preparation Scale Right colon; 2 Transverse colon: 2 Left colon; 2 (0 = Unprepared colon segment with mucosa not seen due to solid stool that cannot be cleared. 1 = Portion of mucosa of the colon segment seen, but other areas of the colon segment not well seen due to staining, residual stool and/or opaque liquid. 2 = Minor amount of residual staining, small fragments of stool and/or opaque liquid, but mucosa of colon segment seen well. 3 = Entire mucosa of colon segment seen well with no residual staining, small fragments of stool or opaque liquid) Impression and Post Procedure Diagnosis: Colonoscopy Findings: No polyps were detected Moderate diverticulosis seen in the sigmoid colon Small hemorrhoids on retroflexed exam. Plan: Repeat Colonoscopy in 10 years or earlier prn. Above findings were reviewed with the patient and relevant handouts were given and the discharge area. Patient was placed on the colonoscopy recall list for repeat colonoscopy in 10 years.
[2024-06-16 10:46] VITALS: BP 124/72; PULSE 76; RESP 18; O2SAT 100
== END 2024-06-16 11:30 | disposition home or self-care (01) ==
PROVIDERS: Nurse Practitioner; PCP Family Medicine; Visit Provider Internal Medicine Gastroenterology
PROC: 0DJD8ZZ Inspection of Lower Intestinal Tract, Via Natural or Artificial Opening Endoscopic (ICD-10-PCS; CPT 45378; principal; 2024-06-16 10:10)
DX: Z12.11 Encounter for screening for malignant neoplasm of colon (principal); K57.30 Diverticulosis of large intestine without perforation or abscess without bleeding; K64.8 Other hemorrhoids; D64.9 Anemia, unspecified; Z79.899 Other long term (current) drug therapy; Z98.890 Other specified postprocedural states
CPT/HCPCS: 45378; 81025; J2003; J2704

== ENCOUNTER → 2024-06-16 09:05 | Outpatient (BNV) | payer OTHER, SELFPAY | PROVIDERS: PCP Family Medicine; Visit Provider Internal Medicine Gastroenterology | DX: Z12.11 Encounter for screening for malignant neoplasm of colon (principal); K57.30 Diverticulosis of large intestine without perforation or abscess without bleeding; K64.8 Other hemorrhoids | CPT/HCPCS: 45378 ==

== ENCOUNTER 2024-07-03 08:33 | Outpatient (AMB) | payer OTHER, SELFPAY ==
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
[2024-07-03 08:47] VITALS: BP 138/80; PULSE 78; RESP 14; TEMP 37.2; O2SAT 98; BMI 31.9
--- OUTSIDE RECORDS SUMMARY | 2024-07-03 09:04 | XMS_ITS | Clinical Summary ---
Author Organization [facility] Address [address] [place] [address] Care Team Providers Care Underwriting Support Specialist Name Role Phone Unavailable Primary Care Provider [...]
== END 2024-07-03 09:13 | disposition home or self-care (01) ==
LOC: HO.HMCFM 08:33
PROVIDERS: PCP Family Medicine; Visit Provider Family Medicine
DX: I10 Essential (primary) hypertension (principal)

== ENCOUNTER → 2024-07-03 08:33 | Outpatient (BNVA) | payer OTHER, SELFPAY | PROVIDERS: PCP Family Medicine; Visit Provider Family Medicine | DX: I10 Essential (primary) hypertension (principal) | CPT/HCPCS: 99212 ==

== ENCOUNTER 2024-09-19 08:01 | Outpatient (REF) | payer OTHER, SELFPAY ==
--- OUTSIDE RECORDS SUMMARY | 2024-09-19 08:03 | XMS_ITS | Clinical Summary ---
Author Organization [facility] Address [address] [place] [address] Care Team Providers Care Refrigeration Specialist Name Role Phone Unavailable Primary Care Provider Unavailabl e Social History Tobacco Use Types Packs/Day Years Used Date Smoking Tobacco: Never Assessed Comments Unknown Sex and Gender Information Value Date Recorded Sex Assigned at Not on file Legal Sex Female 12:32 PM EDT Gender Identity Not on file Sexual Orientation Not on file Plan of Treatment Health Maintenance Due Date Last Done Comments Hepatitis C Virus Screening 1975 HIV Screening 1988 DTaP/Tdap/Td Vaccines (1 - Tdap) 1994 Hepatitis B Vaccines (1 of 3 - 19+ 3-dose series) 1994 Pap Smear (Ages 21-65) 1996 Mammogram 2015 Colonoscopy 2020 COVID-19 Vaccine ( - 2023-2 5 season) 2023 Influenza Vaccine 11/07/2024 Pneumococcal Vaccine: Pediat monique (0-5 Years) and At-Risk Patients (6 to 49 Years) Aged Out No longer eligible b ased on patient's age to complete this topic Insurance [facility]
[2024-09-19 10:01] LABS: MANUAL DIFF FLAG NO
[2024-09-19 10:14] LABS: Basophils Percent Auto 0.6 % (0-2); Eosinophils Absolute Auto 0.1 X10*3/uL (0.0-0.4); Eosinophils Percent Auto 1.7 % (0-4); Hematocrit 36.6 % (37.0-47.0); Hemoglobin 11.7 g/dl (12.0-16.0); Imm Gran Abs Auto 0.01 X10*3/uL (0.00-0.03); Imm Gran Pct Auto 0.2 % (0.0-0.4); Lymphocytes Absolute Auto 1.6 X10*3/uL (1.2-4.9); Mean Corpuscular Hemoglobin 26.5 pg (27.0-33.0); Mean Corpuscular Volume 82.8 fL (80.0-98.0); Mean Platelet Volume 13.7 fL (9.4-12.3); Monocytes Absolute Auto 0.3 X10*3/uL (0.1-1.2); Monocytes Percent Auto 6.8 % (2-11); Neutrophils Absolute Auto 2.7 x10*3/uL (2.0-8.3); Neutrophils Percent Auto 56.7 % (45-73); Platelet Count 165 X10*3/uL (160-400); Red Blood Count 4.42 X10*6/uL (4.20-5.50); Red Cell Distribution Width 14.1 % (11.0-16.0); White Blood Count 4.8 X10*3/uL (4.8-10.8)
[2024-09-19 10:52] LABS: Appearance Urine Turbid; Color Urine Yellow; Glucose Urine UA Negative (Negative); Leukocyte Esterase Urine Negative (Negative); Nitrite Urine Negative (Negative); PH 5.5 (5.0-9.0); Specific Gravity - Urine >= 1.030 (1.005-1.025); Urine Blood Negative (Negative); Urine Ketones Trace mg/dL (Negative); Urine Protein Trace mg/dL (Neg-Trace)
[2024-09-19 10:53] LABS: Creatinine Urine 386.52 mg/dL; Microalbum/Creatinine Ratio Ur 7.5 ug/mg cr (<30)
[2024-09-19 11:02] LABS: Alanine Aminotransferase 16 U/L (0-31); Albumin Level 4.4 g/dL (3.5-5.0); Alkaline Phosphatase 93 U/L (39-117); Anion Gap 10 (12-20); Aspartate Amino Transferase 29 U/L (5-31); Bilirubin Total 0.5 mg/dL (0.0-1.0); Blood Urea Nitrogen 15 mg/dL (9-16); Calcium 9.5 mg/dL (8.4-10.2); Carbon Dioxide 27 mmol/L (22-29); Chloride 107 mmol/L (96-108); Cholesterol 195 mg/dL (<200); Estimated Glomerular Filt Rate 57; Glucose Fasting 88 mg/dL (60-99); HDL Cholesterol 53 mg/dL (>40); LDL Cholesterol Calculated 130 mg/dL (<100); Potassium 3.8 mmol/L (3.3-5.1); Sodium 140 mmol/L (135-145); Total Protein 7.3 g/dL (6.5-8.0); Triglycerides 64 mg/dL (<150)
[2024-09-19 11:04] LABS: TSH reflex Free T4 0.86 uIU/mL (0.32-4.0)
== END 2024-09-19 08:02 | disposition home or self-care (01) ==
LOC: HO.HMGCLDS 08:01
PROVIDERS: PCP Family Medicine; Visit Provider Family Medicine
DX: Z00.00 Encounter for general adult medical examination without abnormal findings (principal); I10 Essential (primary) hypertension
CPT/HCPCS: 36415; 80053; 80061; 81003; 82043; 82570; 84443; 85025

== ENCOUNTER 2024-12-04 16:05 | Outpatient (AMB) | payer OTHER, SELFPAY ==
--- OUTSIDE RECORDS SUMMARY | 2024-12-03 11:30 | XMS_ITS | Encounter Summary ---
Author Organization [facility] Address [address] [place] [id number] Phone Care Team Providers Care Wet Silk Hanger Name Role Phone Porfirio Monahan MD Primary Care Provider Lauren Massey MD Unavailable [phone] Encounter Details Date Type Department Care Team (Late st Contact Info) Description 12/03/2024 11:30 AM EDT Office Visit [facility] [address] [id number] Selene Jc MD [address] [place] [id number] [email or web address] Central centrifugal cicatricial alopecia Social History Tobacco Use Types Packs/Day Years Used Date Smoking Tobacco: Never Smokeless Tobacco: Never Alcohol Use Standard Drinks/Week Comments Yes 0 (1 standard drink = 0.6 oz pur e alcohol) rarely. 2 drinks a year Education Answer Date Recorded Are you interested in more education? Not on raul e 08/20/2022 Are you concerned about learning? Not on file 08/20/2022 No 08/20/2022 No 08/20/2022 Digital Access Answer Date Recorded No 09/03/2022 No 09/03/2022 No 09/03/2022 Reliable internet access at home? Not on file 09/03/2022 Device with a working camera? Not on file Comments No Sex and Gender Information Value Date Recorded Sex Assigned at Female 09/15/2020 4:37 PM EDT Legal Sex Female 5:35 PM EST Gender Identity Female 09/15/2020 4:37 PM EDT Sexual Orientation Straight 09/15/2020 4: 37 PM EDT documented as of this encounter Progress Notes * Selene Jc MD - 12/03/2024 11:30 AM EDT DERMATOLOGY CLINIC NOTE ? New patient CC: hair loss ? HPI: The patient is a 49 y.o. female, here for hair loss. Hx of scaring alopecia x 10 years. Currently using fluocinonide and minoxidil topically, taking oral metformin. Stopped using ketoconazole shampoo. No scalp symptoms. Currently wears her hair in locks and washes her hair once a week on average. She notes some hollowness within the locks. She noted some GI upset around when she started metformin, but has since resolved. 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 Scarring alopecia, focal patch, 3-4 cm in width with perifollicular halo. Remainder of scalp without overt erythema. Scattered areas of tufted follicles admixed in areas of scarred over ostia. Nature of the condition discussed. Discussed with patient that this is an irreversible scarring process and the hair that is lost cannot be recovered. Recommended gentle hair care practices, such as reducing chemical perms, traction, and heat application. Patient would like to avoid ILK if possible. Continue flucinonide 0.05% ointment TIW Continue metformin XR 500 mg daily (started July 2024) - discussed risk of GI upset, diarrhea Continue minoxidil 5% topically qHS (pt prefers topical to oral) - discussed risk of initial hair shedding, hypertrichosis in areas of inadvertent exposure, and to avoid access to dogs/cats - in reserve: oral minoxidil, HCQ F/u 4 months IJose A Amelie, acting as scribe for Selene Jc MD, last updated this note on 12/03/2024.@ 12:22. The note above reflects services personally performed by me.? 12/03/24 1:16 PM Selene Jc MD documented in this encounter Plan of Treatment Upcoming Encounters Date Type Department Care Team (Late st Contact Info) Description 05/07/2025 9:45 AM EST Office Visit [facility] [address] [place] [id number] Selene Jc MD [address] [place] [id number] [email or web address] documented as of this encounter Visit Diagnoses Diagnosis Central centrifugal cicatricial alopecia documented in this encounter Care Teams Wet Silk Hanger Relationship Specialty Start Date End Date Porfirio Monahan MD [address] [place] [address] PCP - General 11/16/20 Lauren Massey MD [address] [place] [address] [place] [id number] Insurance Assigned Provider Internal Medicine 11/29/20 documented as of this encounter Additional Source Comments The information contained in this document represents components of the legal health record. It is not the complete legal health record.[facility]
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
[2024-12-04 16:14] VITALS: BP 124/78; PULSE 73; RESP 16; TEMP 36.6; O2SAT 100; BMI 31.5
--- OUTSIDE RECORDS SUMMARY | 2024-12-04 16:20 | XMS_ITS | Clinical Summary ---
Author Organization [facility] Address [address] [place] [address] Phone Care Team Providers Care Funeral Service Apprentice Name Role Phone Porfirio Monahan MD Primary Care Provider Lauren Massey MD Unavailable Allergies No known active allergies Medications levocetirizine (XYZAL) 5 MG tablet Take 1 tablet by mouth every morning. 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 To scalp. 60 g 6 12/04/19 25 Active metFORMIN (GLUCOPHAGE-XR) 500 MG 24 hr tabletIndicatio ns:Central centrifugal cicatricial alopecia Take 1 tablet (500 mg total) by mouth daily with breakfast. 90 tablet 6 12/04/19 25 Active ketoconazole (NIZORAL) 2 % shampoo APPLY TWICE WEEKLY NEEDED 09/21/19 22 025 Discontinued fluocinonide 0.05 % ointmentIndicat ions:Central centrifugal cicatricial alopecia Apply topically 3 (three) times a week on Sunday, Sunday, Sunday. To scalp. 60 g 6 07/19/19 25 025 Discontinued(Re order) metFORMIN (GLUCOPHAGE-XR) 500 MG 24 hr tabletIndicatio ns:Central centrifugal cicatricial alopecia Take 1 tablet (500 mg total) by mouth daily with breakfast. 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 10/08/2024 2:55 PM EDT - 10/08/2024 11:59 PM EDT Hospital Encounter [facility] [address] [place] [address] Ashley Argueta MD Discharge Disposition: Home or Self Care 09/29/2024 11:00 AM EDT Telemedicine Minimally Invasive Gynecologic Surgery [address], [address] [place] [address] Ashley Argueta MD Hair loss (Primary Dx); Weight gain; Perimenopausal vasomotor symptoms from Last 3 Months Social History Tobacco Use Types Packs/Day Years Used Date Smoking Tobacco: Never Smokeless Tobacco: Never Alcohol Use Standard Drinks/Week Comments Yes 0 (1 standard drink = 0.6 oz pur e alcohol) rarely. 2 drinks a year Education Answer Date Recorded Are you interested in more education? Not on rual e 08/20/2022 Are you concerned about learning? [...] Orientation Straight 09/15/2020 4: 37 PM EDT Last Filed Vital Signs Vital Sign Reading Time Taken Comments Blood Pressure 120/84 07/17/2023 3:26 PM EDT Pulse 108 05/19/2021 5:31 AM EST Temperature 37.1 C (98.7 F) 05/19/2021 5:31 AM EST Respiratory Rate 18 05/19/2021 7:48 AM EST Oxygen Saturation 99% 05/19/2021 7:48 AM EST Inhaled Oxygen Concentration - - Weight 77.1 kg (170 lb) 06/27/2022 11:52 AM EDT Height 162.6 cm (5' 4 ) 06/27/2022 11:52 AM EDT Body Mass Index 29.18 06/27/2022 11:52 AM EDT Plan of Treatment Upcoming Encounters Date Type Department Care Team (Late st Contact Info) Description 05/07/2025 9:45 AM EST Office Visit [facility] [address] [place] [address] Selene Jc MD [address] [place] [address] [email or web address] Health Maintenance Due Date Last Done Comments CREATININE LEVEL 1975 LIPID PANEL 1975 DEPRESSION SCREENING 1987 HEPATITIS C SCREENING 1993 HIV ONE-TIME SCREENING (18-6 5 YEARS) 1993 SCREENING FOR DIABETES 2010 MAMMOGRAM 2015 COLOGUARD 2020 COLONOSCOPY 2020 COLORECTAL CANCER SCREENING 2020 FIT TEST 2020 FOBT 2020 SIGMOIDOSCOPY 2020 VIRTUAL COLONOSCOPY 2020 POTASSIUM LEVEL 05/18/2022 05/18/2021 COVID-19 VACCINE (2023-2 5 season) 2023 05/06/2021, 11/18/2020, 10/21/2020 INFLUENZA VACCINE (#1) 2024 PAP SMEAR 06/27/2025 06/27/2022, 06/27/2022, 03/19/1997 Adult Td,Tdap Booster 07/04/2030 07/04/2020 SMOKING STATUS SCREENING (On ce After 26 Yrs) Completed 06/24/2021 HEPATITIS A VACCINES Aged Out No long er eligible based on patient's age to complete this topic HIB VACCINES Aged Out No longer eligi ble based on patient's age to complete this topic MENINGOCOCCAL VACCINES (ACWY) Aged Out No longer eligible based on patient's age to complete this topic MENINGOCOCCAL VACCINES (B) Aged Out N o longer eligible based on patient's age to complete this topic PNEUMOCOCCAL VACCINES (0-49 years) Aged Out No longer eligible b ased on patient's age to complete this topic Medical Devices Not on file Procedures Procedure Name Priority Date/Time Associated Diagnosis Comments TESTOSTERONE, TOTAL Routine 10/08/2024 3 :22 PM EDT Hair loss TSH WITH REFLEX Routine 10/08/2024 3:22 PM EDT Weight gain PAP TEST Routine 06/27/2022 12:00 AM EDT VENOUS BLOOD GAS PLUS STAT 05/18/2021 2:11 PM EST from Last 3 Months or Most Recently Relevant to Health Maintenance Results * TSH with reflex (10/08/2024 3:22 PM EDT) TSH 1.40 0.27 - 4.20 uIU/mL [facility] Blood 10/08/2024 3:22 PM EDT 10/08/2024 3:28 PM EDT Ashley Argueta MD LAB BLOOD ORDERABLES Final Result [facility] [address] [place] [address] * Testosterone, total (10/08/2024 3:22 PM EDT) TESTOSTERONE <3 <50 ng/dL [facility] Blood 10/08/2024 3:22 PM EDT 10/08/2024 3:28 PM EDT us Ashley Argueta MD LAB BLOOD ORDERABLES Final Result [address] [address] * Pap Test (06/27/2022 12:00 AM EDT) 06/27/2022 06/27/2022 3:0 5 PM EDT Narrative SEE NARRATIVE - 07/19/2022 12:55 [place] [address] TRENCH DIGGER Cytology Report Patient Name: MADALYN EDGAR : 1975 (Age: 47) Sex: F Institution: [facility] Location: [facility] Date of Collection: 06/27/2022 Date of Reported: 07/19/2022 12:55 Results to: Ashley Argueta MD FINAL DIAGNOSIS A. CERVICAL, LIQUID BASED SPECIMEN: SPECIMEN ADEQUACY: Satisfactory for evaluation. INTERPRETATION: NEGATIVE FOR INTRAEPITHELIAL LESION OR MALIGNANCY. ADDITIONAL INFORMATION: This specimen was prescreened using the [employer] Imaging System. Electronically Signed Out By: TEODORA Weaver (ASCP) LOVELY Cervical cytology is a screening test primarily for squamous cancers and precursors and has associated false-negative and false-positive results. New technologies such as liquid-based preparations may decrease but will not eliminate all false-negative results. Regular sampling and follow-up of unexplained clinical signs and symptoms are recommended to minimize false negative results. PROCEDURES/ADDENDA HPV Testing (Requested) Ordered Date: 06/27/2022 A. CERVICAL, LIQUID BASED SPECIMEN: Human Papilloma Virus Test NEGATIVE for high-risk Human Papilloma Virus types 16, 18, 45 and the Other high risk probe set (Includes 31, 33, 35, 39, 51, 52, 56, 58, 59, 66, 68) Note: Testing performed by [facility] HR-HPV analysis. Clinical correlation is advised. This HPV test was performed at [facility], [address] [place] [address]. This test has been FDA approved for [facility] cervical cytology specimens. The accuracy and precision of this test for all other specimen sources has been verified in the Cytopathology Laboratory of the [facility] and has not been cleared or approved by the U.S. Food and Drug Administration. Clinical correlation is advised. CLINICAL HISTORY Date of Last Menstrual Period: SPECIMEN SOURCE A: CERVICAL, LIQUID BASED SPECIMEN Ashley Argueta MD CYTOLOGY ORDERABLES Final R esult SEE NARRATIVE * (ABNORMAL) VENOUS BLOOD GAS PLUS (05/18/2021 2:11 PM EST) FIO2 UNSPEC. FIO2/L min [facility] PH 7.27(L) 7.30 - 7.40 [facility] PCO2 54(H) 38 - 50 mm[Hg] [facility] PO2 45 35 - 50 mm[Hg] [facility] Base Excess, unspecified NEG 0.0 - 3.0 mmol/L [facility] Comment:2.9NEG HCO3, unspecified 24 24 - 30 mmol/L [facility] SODIUM 135 135 - 145 mmol/L [facility] POTASSIUM 4.3 3.5 - 5.0 mmol/L [facility] IONIZED CALCIUM 1.05(L) 1.14 - 1.30 mmol/L [facility] Glucose, whole bld 133(H) 70 - 110 mg/dL [facility] HGB (BG) 10.0(L) 12.0 - 16.0 g/dl [facility] SO2-VENOUS (SO2, venous) 72.7 60.0 - 85.0 % [facility] Blood 05/18/2021 2:11 PM EST 05/18/2021 2:17 PM EST Tiffanie Benitez MD LAB BLOOD ORDERABLES Final R esult [facility] [address] [place] [address] from Last 3 Months or Most Recently Relevant to Health Maintenance Insurance CIGNA PPO CIGNA PPO CIGNA PPO CIGNA PPO CIG PPO CIGNA PPO Care Teams Funeral Service Apprentice Relationship Specialty Start Date End Date Porfirio Monahan MD [address] [place] [address] PCP - General 11/16/20 Lauren Massey MD [address] [place] [address] Insurance Assigned Provider Internal Medicine 11/29/20 Additional Source Comments The information contained in this document represents components of the legal health record. It is not the complete legal health record.[facility]
--- OUTSIDE RECORDS SUMMARY | 2024-12-04 16:20 | XMS_ITS | Encounter Summary ---
Author Organization [facility] Address [address] [place] [address] [address] [place] [address] Phone Care Team Providers Care Latrine Cleaner Name Role Phone Porfirio Monahan MD Primary Care Provider Lauren Massey MD Unavailable [phone] Reason for Visit * Reason Onset Date Comments Appointment 06/03/2021 YB - post op Encounter Details Date Type Department Care Team (Late Contact Info) Description 06/03/2021 Telephone [facility] Gynecology [address] [facility], 4th Floor, [address] [place] [address] Ashley Argueta MD [address] [place] [address] [email or web address] Appointment (YB - post op) Social History Tobacco Use Types Packs/Day Years Used Date Smoking Tobacco: Never Smokeless Tobacco: Never Alcohol Use Standard Drinks/Week Comments Yes 0 (1 standard drink = 0.6 oz pur e alcohol) rarely. 2 drinks a year Comments No Sex and Gender Information Value Date Recorded Sex Assigned at Female 09/15/2020 4:37 PM EDT Legal Sex Female 5:35 PM EST Gender Identity Female 09/15/2020 4:37 PM EDT Sexual Orientation Straight 09/15/2020 4: 37 PM EDT documented as of this encounter Plan of Treatment Upcoming Encounters Date Type Department Care Team (Late Contact Info) Description 05/07/2025 9:45 AM EST Office Visit [facility] [address] [address] Selene Jc MD [address] [place] [address] [email or web address] documented as of this encounter Visit Diagnoses Not on filedocumented in this encounter Care Teams Latrine Cleaner Relationship Specialty Start Date End Date Porfirio Monahan MD [address] [place] [id number] PCP - General 11/16/20 Lauren Massey MD [address] [place] [address] [place] [address] Insurance Assigned Provider Internal Medicine 11/29/20 documented as of this encounter Additional Source Comments The information contained in this document represents components of the legal health record. It is not the complete legal health record.[facility]
--- OUTSIDE RECORDS SUMMARY | 2024-12-04 16:20 | XMS_ITS | Encounter Summary ---
Author Organization [facility] Address [address] [place] [address] Phone Care Team Providers Care Utility Worker Forge Name Role Phone Porfirio Monahan MD Primary Care Provider Lauren Massye MD Unavailable [phone] Encounter Details Date Type Department Care Team (Late Contact Info) Description 05/18/2021 Procedure Pass [facility] [address] [place] [id number] Social History Tobacco Use Types Packs/Day Years [...] Description 05/07/2025 9:45 AM EST Office Visit [facility] [address] [address] Selene Jc MD [address] [place] [address] [email or web address] documented as of this encounter Visit Diagnoses Not on filedocumented in this encounter Care Teams Utility Worker Forge Relationship Specialty Start Date End Date Porfirio Monahan MD [address] [place] [address] PCP - General 11/16/20 Lauren Massey MD [address] [place] [address] [place] [address] Insurance Assigned Provider Internal Medicine 11/29/20 documented as of this encounter Additional Source Comments The information contained in this document represents components of the legal health record. It is not the complete legal health record.[facility]
--- OUTSIDE RECORDS SUMMARY | 2024-12-04 16:20 | XMS_ITS | Encounter Summary ---
Author Organization [facility] Address [address] [place] [address] [address] [place] [address] Phone Care Team Providers Care Distance Education Faculty Liaison Name Role Phone Porfirio Monahan MD Primary Care Provider Lauren Massey MD Unavailable Encounter Details Date Type Department Care Team (Late st Contact Info) Description 12/06/2020 Procedure Pass MRI, [facility] - [address], [address] [place] [address] Social History Tobacco Use Types Packs/Day Years Used Date Smoking Tobacco: Never Comments No Sex and Gender Information Value [...] Description 05/07/2025 9:45 AM EST Office Visit [facility] [address] [address] Selene Jc MD [address] [place] [address] [email or web address] documented as of this encounter Visit Diagnoses Not on filedocumented in this encounter Care Teams Distance Education Faculty Liaison Relationship Specialty Start Date End Date Porfirio Monahan MD [address] [place] [address] PCP - General 11/16/20 Lauren Massey MD [address] [place] [address] [place] [address] Insurance Assigned Provider Internal Medicine 11/29/20 documented as of this encounter Additional Source Comments The information contained in this document represents components of the legal health record. It is not the complete legal health record.[facility]
--- OUTSIDE RECORDS SUMMARY | 2024-12-04 16:21 | XMS_ITS | Clinical Summary ---
Author Organization [facility] Address [address] [place] [address] Care Team Providers Care Horn Player Name Role Phone Unavailable Primary Care Provider [...]
--- OUTSIDE RECORDS SUMMARY | 2024-12-04 16:21 | XMS_ITS | Encounter Summary ---
Author Organization [facility] Address [address] [place] [address] [address] [place] [address] Phone Care Team Providers Care Tank House Supervisor Name Role Phone Porfirio Monahan MD Primary Care Provider Lauren Massey MD Unavailable Reason for Visit * Reason Onset Date Comments Triage 03/25/2021 antelmo Encounter Details Date Type Department Care Team (Late st Contact Info) Description 03/25/2021 Telephone [facility] [address] [facility], 4th [address], [address] [place] [address] Ashley Argueta MD [address] [place] [address] [email or web address] Triage (antelmo) Social History Tobacco Use Types Packs/Day Years [...] Description 05/07/2025 9:45 AM EST Office Visit [facility] [address] [facility] 1st [place] [address] Selene Jc MD [address] [place] [phone] [email or web address] documented as of this encounter Visit Diagnoses Not on filedocumented in this encounter Care Teams Tank House Supervisor Relationship Specialty Start Date End Date Porfirio Monahan MD [address] [place] [address] PCP - General 11/16/20 Lauren Massey MD [address] [place] [address] [place] [address] Insurance Assigned Provider Internal Medicine 11/29/20 documented as of this encounter Additional Source Comments The information contained in this document represents components of the legal health record. It is not the complete legal health record.[facility]
== END 2024-12-04 16:42 | disposition home or self-care (01) ==
LOC: HO.HMCFM 16:06
PROVIDERS: PCP Family Medicine; Visit Provider Physician Assistant Medical
DX: I10 Essential (primary) hypertension (principal); E66.9 Obesity, unspecified; Z68.31 Body mass index [BMI] 31.0-31.9, adult; R41.840 Attention and concentration deficit; R01.1 Cardiac murmur, unspecified; R94.4 Abnormal results of kidney function studies; D64.9 Anemia, unspecified; F41.9 Anxiety disorder, unspecified

== ENCOUNTER → 2024-12-04 16:05 | Outpatient (BNVA) | payer OTHER, SELFPAY | PROVIDERS: PCP Family Medicine; Visit Provider Physician Assistant Medical | DX: R41.840 Attention and concentration deficit (principal); I10 Essential (primary) hypertension; R01.1 Cardiac murmur, unspecified; R94.4 Abnormal results of kidney function studies; D64.9 Anemia, unspecified; E66.9 Obesity, unspecified; Z68.31 Body mass index [BMI] 31.0-31.9, adult; F41.9 Anxiety disorder, unspecified; Z79.899 Other long term (current) drug therapy; Z13.31 Encounter for screening for depression; Z13.39 Encounter for screening examination for other mental health and behavioral disorders | CPT/HCPCS: 96127 ==

== ENCOUNTER 2025-01-02 13:17 | Outpatient (REF) | payer OTHER, SELFPAY ==
--- OUTSIDE RECORDS SUMMARY | 2025-01-02 14:33 | XMS_ITS | Clinical Summary ---
Author Organization [facility] Address [address] [place] [address] Care Team Providers Care Addiction Counselor Name Role Phone Unavailable Primary Care Provider [...] 1996 Mammogram 2015 Colonoscopy 2020 Influenza Vaccine 11/07/2024 COVID-19 Vaccine (1 - 2023-2 5 season) 2024 Pneumococcal Vaccine: Pediat monique (0-5 Years) and At-Risk Patients (6 to 49 Years) Aged Out No longer eligible b ased on patient's age to complete this topic Insurance [employer]
--- OUTSIDE RECORDS SUMMARY | 2025-01-02 14:33 | XMS_ITS | Encounter Summary ---
Author Organization [facility] Address [address] [place] [address] [address] [place] [address] Phone Care Team Providers Care Internal Review And Audit Compliance Name Role Phone Porfirio Monahan MD Primary Care Provider Lauren Massey MD Unavailable [phone] Reason for Visit * Reason Onset Date Comments Appointment 06/03/2021 YB - post op Encounter Details Date Type Department Care Team (Late Contact Info) Description 06/03/2021 Telephone [facility] Gynecology [address] [facility], 4th Floor, [address] [place] [address] Ashley Argueta MD [address] [place] [address] [email or web address] Appointment (YB - post op) Social History [...] Description 05/07/2025 9:45 AM EST Office Visit [facility] [address] [address] Selene Jc MD [address] [place] [address] [email or web address] documented as of this encounter Visit Diagnoses Not on filedocumented in this encounter Care Teams Internal Review And Audit Compliance Relationship Specialty Start Date End Date Porfirio Monahan MD [address] [place] [address] PCP - General 11/16/20 Lauren Massey MD [address] [place] [address] [place] [address] Insurance Assigned Provider Internal Medicine 11/29/20 documented as of this encounter Additional Source Comments The information contained in this document represents components of the legal health record. It is not the complete legal health record.[facility]
--- OUTSIDE RECORDS SUMMARY | 2025-01-02 14:33 | XMS_ITS | Clinical Summary ---
Author Organization [facility] Address [address] [place] [address] Phone Care Team Providers Care Regional Medical Director Name Role Phone Porfirio Monahan MD Primary Care Provider Lauren Massey MD Unavailable Allergies No known active allergies Medications levocetirizine (XYZAL) 5 MG tablet Take 1 tablet by mouth every morning. 4 Active lisinopril (PRINIVIL,ZESTRI L) 20 MG tablet 4 Active fluocinonide 0.05 % ointmentIndicati ons:Central centrifugal cicatricial alopecia Apply topically 3 (three) times a week on Sunday, Sunday, Sunday. To scalp. 60 g 6 5 Active metFORMIN (GLUCOPHAGE-XR) 500 MG 24 hr tabletIndication s:Central centrifugal cicatricial alopecia Take 1 tablet (500 mg total) by mouth daily with breakfast. 90 tablet 6 5 Active Active Problems Problem Noted Date Diagnosed Date Post-operative state 05/18/2021 Abnormal uterine bleeding 04/16/2021 Anemia 04/16/2021 Vaginal discharge 04/16/2021 Fibroid 12/05/2020 Encounters Date Type Department Care Team Description 12/03/2024 11:30 AM EDT Office Visit [facility] [address] [address] Selene Jc MD Central centrifugal cicatricial alopecia 10/08/2024 2:55 PM EDT - 10/08/2024 11:59 PM EDT Hospital Encounter [facility] [address] [place] [address] Ashley Argueta MD Discharge Disposition: Home or Self Care from Last 3 Months Social History Tobacco [...] Description 05/07/2025 9:45 AM EST Office Visit [facility] [address] [address] Selene Jc MD [address] [place] [address] [email or web address] Health Maintenance Due Date Last Done Comments CREATININE LEVEL 1975 LIPID PANEL 1975 DEPRESSION SCREENING 1987 HEPATITIS C SCREENING 1993 HIV ONE-TIME SCREENING (18-6 5 YEARS) 1993 SCREENING FOR DIABETES 2010 MAMMOGRAM 2015 COLOGUARD 2020 COLONOSCOPY 2020 COLORECTAL CANCER SCREENING 2020 FIT TEST 2020 FOBT 2020 SIGMOIDOSCOPY 2020 VIRTUAL COLONOSCOPY 2020 POTASSIUM LEVEL 05/18/2022 05/18/2021 INFLUENZA VACCINE (#1) 2024 COVID-19 VACCINE (2024-2 6 season) 2024 05/06/2021, 11/18/2020, 10/21/2020 PAP SMEAR 06/27/2025 06/27/2022, 06/27/2022, 03/19/1997 Adult [...] EDT) TSH 1.40 0.27 - 4.20 uIU/mL [facility] Blood 10/08/2024 3:22 PM EDT 10/08/2024 3:28 PM EDT Ashley Argueta MD LAB BLOOD ORDERABLES Final Result Performing Organization Address City/[facility]/ZIP Co de Phone Number [address] [address] * Testosterone, total (10/08/2024 3:22 PM EDT) TESTOSTERONE <3 <50 ng/dL [facility] Blood 10/08/2024 3:22 PM EDT 10/08/2024 3:28 PM EDT Ashley Argueta MD LAB BLOOD ORDERABLES Final Result Performing Organization Address City/[facility] Co de Phone Number [address] [address] * Pap Test (06/27/2022 12:00 AM EDT) 06/27/2022 06/27/2022 3:0 5 PM EDT Narrative SEE NARRATIVE - 07/19/2022 12:55 [place] [address] OLERICULTURIST Cytology Report Patient Name: MADALYN EDGAR : 1975 (Age: 47) Sex: F Institution: [facility] Location: [facility] Date of Collection: 06/27/2022 Date of Reported: 07/19/2022 12:55 Results to: Ashley Argueta MD FINAL DIAGNOSIS A. CERVICAL, LIQUID BASED SPECIMEN: SPECIMEN ADEQUACY: Satisfactory for evaluation. INTERPRETATION: NEGATIVE FOR INTRAEPITHELIAL LESION OR MALIGNANCY. ADDITIONAL INFORMATION: This specimen was prescreened using the [employer] Imaging System. Electronically Signed Out By: TEODORA Weaver (ASCP) MB Cervical cytology is a screening test primarily [...] 59, 66, 68) Note: Testing performed by [employer] [facility] HR-HPV analysis. Clinical correlation is advised. This HPV test was performed at [facility], [address] [place] [address]. This test has been FDA approved for [employer] cervical cytology specimens. The accuracy and precision of this test for all other specimen sources has been verified in the Cytopathology Laboratory of the [facility] and has not been cleared or approved by the U.S. Food and Drug Administration. Clinical correlation is advised. CLINICAL HISTORY Date of Last Menstrual Period: SPECIMEN SOURCE A: CERVICAL, LIQUID BASED SPECIMEN Ashley Argueta MD CYTOLOGY ORDERABLES Final R esult SEE NARRATIVE * (ABNORMAL) VENOUS BLOOD GAS PLUS (05/18/2021 2:11 PM EST) FIO2 UNSPEC. FIO2/L min [facility] PH 7.27(L) 7.30 - 7.40 [facility] PCO2 54(H) 38 - 50 mm[Hg] [facility] PO2 45 35 - 50 mm[Hg] [facility] Base Excess, unspecified NEG 0.0 - 3.0 mmol/L [facility] Comment:2.9NEG HCO3, unspecified 24 24 - 30 mmol/L [facility] SODIUM 135 135 - 145 mmol/L [facility] POTASSIUM 4.3 3.5 - 5.0 mmol/L [facility] IONIZED CALCIUM 1.05(L) 1.14 - 1.30 mmol/L [facility] Glucose, whole bld 133(H) 70 - 110 mg/dL [facility] HGB (BG) 10.0(L) 12.0 - 16.0 g/dl [facility] SO2-VENOUS (SO2, venous) 72.7 60.0 - 85.0 % [facility] Blood 05/18/2021 2:11 PM EST 05/18/2021 2:17 PM EST Tiffanie Benitez MD LAB BLOOD ORDERABLES Final R esult [address] [address] from Last 3 Months or Most Recently Relevant to Health Maintenance Insurance [facility] P[employer] ELIJAH PPO CIGNA PPO CIGNA PPO CIGNA PPO CIGNA PPO Care Teams Regional Medical Director Relationship Specialty Start Date End Date Porfirio Monahan MD [address] [place] [address] PCP - General 11/16/20 Lauren Massey MD [address] [place] [address] [place] [address] Insurance Assigned Provider Internal Medicine 11/29/20 Additional Source Comments The information contained in this document represents components of the legal health record. It is not the complete legal health record.[facility]
--- OUTSIDE RECORDS SUMMARY | 2025-01-02 14:33 | XMS_ITS | Encounter Summary ---
Author Organization [facility] Address [address] [place] [address] [address] [place] [address] Phone Care Team Providers Care Case Fitter Name Role Phone Porfirio Monahan MD Primary Care Provider Lauren Massey MD Unavailable Reason for Visit * Reason Onset Date Comments Triage 03/25/2021 antelmo Encounter Details Date Type Department Care Team (Late st Contact Info) Description 03/25/2021 Telephone [facility] [address] [facility], 4th [address], [address] [place] [address] Ashley Argueta MD [address] [place] [address] [email or web address] Triage (antelmo) Social History Tobacco Use Types [...] Description 05/07/2025 9:45 AM EST Office Visit [facility] [address] [facility] 1st [place] [address] Selene Jc MD [address] [place] [phone] [email or web address] documented as of this encounter Visit Diagnoses Not on filedocumented in this encounter Care Teams Case Fitter Relationship Specialty Start Date End Date Porfirio Monahan MD [address] [place] [address] PCP - General 11/16/20 Lauren Massey MD [address] [place] [address] [place] [address] Insurance Assigned Provider Internal Medicine 11/29/20 documented as of this encounter Additional Source Comments The information contained in this document represents components of the legal health record. It is not the complete legal health record.[facility]
--- OUTSIDE RECORDS SUMMARY | 2025-01-02 14:33 | XMS_ITS | Encounter Summary ---
Author Organization [facility] Address [address] [place] [address] Phone Care Team Providers Care Educational Guidance Counselor Name Role Phone Porfirio Monahan MD Primary Care Provider Lauren Massey MD Unavailable + [phone] Encounter Details Date Type Department Care Team (Late Contact Info) Description 05/18/2021 Procedure Pass [facility] [address] [place] [id number] Social History Tobacco Use Types Packs/Day [...] Description 05/07/2025 9:45 AM EST Office Visit [facility] [address] [address] Selene Jc MD [address] [place] [address] [email or web address] documented as of this encounter Visit Diagnoses Not on filedocumented in this encounter Care Teams Educational Guidance Counselor Relationship Specialty Start Date End Date Porfirio Monahan MD [address] [place] [address] PCP - General 11/16/20 Lauren Massey MD [address] [place] [address] [place] [address] Insurance Assigned Provider Internal Medicine 11/29/20 documented as of this encounter Additional Source Comments The information contained in this document represents components of the legal health record. It is not the complete legal health record.[facility]
--- OUTSIDE RECORDS SUMMARY | 2025-01-02 14:33 | XMS_ITS | Encounter Summary ---
Author Organization [facility] Address [address] [place] [address] [address] [place] [address] Phone Care Team Providers Care Stringer Machine Tender Name Role Phone Porfirio Monahan MD Primary Care Provider Lauren Massey MD Unavailable Encounter Details Date Type Department Care Team (Late st Contact Info) Description 12/06/2020 Procedure Pass MRI, [facility] - [address], [address] [place] [address] Social History Tobacco Use Types Packs/Day Years [...] Description 05/07/2025 9:45 AM EST Office Visit [facility] [address] [address] Selene Jc MD [address] [place] [address] [email or web address] documented as of this encounter Visit Diagnoses Not on filedocumented in this encounter Care Teams Stringer Machine Tender Relationship Specialty Start Date End Date Porfirio Monahan MD [address] [place] [address] PCP - General 11/16/20 Lauren Massey MD [address] [place] [address] [place] [address] Insurance Assigned Provider Internal Medicine 11/29/20 documented as of this encounter Additional Source Comments The information contained in this document represents components of the legal health record. It is not the complete legal health record.[facility]
[2025-01-02 16:04] LABS: Appearance Urine Turbid; Glucose Urine UA Negative (Negative); PH 5.0 (5.0-9.0); Specific Gravity - Urine >= 1.030 (1.005-1.025)
[2025-01-02 16:23] LABS: Estimated Glomerular Filt Rate 54
== END 2025-01-02 13:18 | disposition home or self-care (01) ==
LOC: HO.HMGCLDS 13:17
PROVIDERS: PCP Physician Assistant Medical; Visit Provider Physician Assistant Medical
DX: E11.9 Type 2 diabetes mellitus without complications (principal); R94.4 Abnormal results of kidney function studies; R39.9 Unspecified symptoms and signs involving the genitourinary system
CPT/HCPCS: 36415; 81001; 82565

== ENCOUNTER 2025-01-05 15:53 | Outpatient (AMB) | payer OTHER, SELFPAY ==
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
[2025-01-05 15:59] VITALS: BP 110/68; PULSE 64; RESP 15; TEMP 36.2; O2SAT 98; BMI 31.4
== END 2025-01-05 16:43 | disposition home or self-care (01) ==
LOC: HO.HMCFM 15:54
PROVIDERS: PCP Family Medicine; Visit Provider Physician Assistant Medical
DX: Z00.00 Encounter for general adult medical examination without abnormal findings (principal); E66.811 Obesity, class 1; Z68.31 Body mass index [BMI] 31.0-31.9, adult; R94.4 Abnormal results of kidney function studies; I10 Essential (primary) hypertension; E78.5 Hyperlipidemia, unspecified